=== PATIENT | female | born 1970 | race African-American/Black ===

== ENCOUNTER 2018-06-10 20:27 | Inpatient (IN) ==
--- NOTE | 2018-06-10 21:47 | ED ---
HPI General Chief Complaint: Neuro Symptoms/Deficit Stated Complaint: Skin problem on lips Source: patient and family Mode of arrival: ambulatory Limitations: no limitations History of Present Illness HPI narrative: 47 years old female complaint generalized malaise and weakness, lethargy, twitching of the hands extremity, dropping things out of hands, unsteady gait. Patient states that symptoms started after she was seen in emergency room for scabies on May 30, 2018. Patient was given prescription for prednisone 20 mg twice a day for 5 days, permethrin topical to be used once and repeated in 1 week. Patient also was given prescription for Vistaril for itching and triamcinolone cream. Patient normally taking gabapentin 600 mg 3 times a day, clonidine 0.2 mg 3 times a day, lisinopril HCTZ 10/12.5 daily, methadone 5 mg every other day. Last methadone dose was yesterday. Patient denies any alcohol or other illicit drug abuse. Patient denies any headache. Patient complains of blistering on the lips for the past 10 days. Patient complains of itching rash with swelling of the labia the past 10 days also. Patient is on her menstruation. Now. Patient denies any headache. Patient denies any visual change. Patient denies any neck pain. Patient denies any chest pain or shortness of breath. Patient denies abdominal pain. Patient denies any dysuria frequency. Patient denies any fever chills. Patient denies any back pain. Patient has history of diabetes in the past. Patient was on metformin. Patient lost weight and get off Metformin herself. Patient has not had her blood sugar checked recently. MD complaint: altered mental status and weakness Onset (ago): day(s) Timing confirmed by: family member Severity: moderate Consistency of symptoms: getting worse Context: change in medication Associated symptoms: weakness and difficulty walking Related Data Home Medications Medication Instructions Recorded Confirmed clonidine HCl 0.2 mg PO TID 05/30/18 05/30/18 gabapentin 600 mg PO TID 05/30/18 05/30/18 lisinopril-hydrochlorothiazide 1 tab PO DAILY 05/30/18 05/30/18 methadone 5 mg PO EVERY OTHER DAY 05/30/18 05/30/18 Previous Rx's Medication Instructions Recorded hydroxyzine pamoate [Vistaril] 25 mg PO Q8H PRN #20 cap 05/30/18 permethrin 60 ml TOPICAL Q7D #59 ml NS 05/30/18 triamcinolone acetonide 1 applic TOPICAL BID PRN #15 g 05/30/18 Allergies Allergy/AdvReac Type Severity Reaction Status Date / Time vancomycin Allergy Severe Anaphylaxis Verified 06/10/18 20:34 *MDRO Multi-Drug Resistant AdvReac Unknown Rash Uncoded 05/30/18 20:09 Organism Review of Systems ROS: all other systems reviewed are negative PMFSH History History Provided By: Patient Medical History Medical History Anxiety (Acute) Heart valve problem (Acute) Hypertension (Acute) Surgical History Surgical History Hx of knee surgery (Acute) Social History Social History Substance History: Active Abuse and Past History Second Hand Smoke Exposure: Yes Smoking Status: Current every day smoker Tobacco Type: Cigarettes How Often Do You Have a Drink Containing Alcohol: Monthly or less Recent Travel in [facility] within the Last 8 Weeks: No Recent Out of Country Travel within the Last 8 Weeks: No Exam Narrative Exam Narrative: GENERAL: Well-nourished, well-developed patient. SKIN: Focused skin assessment warm/dry. HEAD: Normocephalic. EYES: No scleral icterus. No injection or drainage. Patient has mild erythematous on the tongue area and the lips. NECK: Supple, trachea midline. No JVD or lymphadenopathy. CARDIOVASCULAR: Regular rate and rhythm without murmurs, gallops, or rubs. RESPIRATORY: Breath sounds equal bilaterally. No accessory muscle use. GASTROINTESTINAL: Abdomen soft, non-tender, nondistended. MUSCULOSKELETAL: No cyanosis, or edema. BACK: Nontender without obvious deformity. No CVA tenderness. [employer]ATOR exam: Patient has a whitish rash in the labia area. Patient has fresh blood in the vaginal vault. Patient on her menstruation. Course Initial Documented Vital Signs Temperature 97.7 F 06/10/18 20:40 Pulse Rate 95 H 06/10/18 20:40 Respiratory Rate 18 06/10/18 20:40 Blood Pressure 78/50 L 06/10/18 20:40 Pulse Oximetry 96 06/10/18 20:40 Last Documented Vital Signs Temperature 97.7 F 06/10/18 20:40 Pulse Rate 80 06/10/18 22:58 Respiratory Rate 20 06/10/18 22:58 Blood Pressure 86/59 L 06/10/18 22:58 Pulse Oximetry 96 06/10/18 22:58 Medical Decision Making MDM Narrative Medical decision making narrative: 47 years old female with generalized malaise and weakness, lethargy, complains of rash on the mouth and also labia area. Patient was seen 11 days ago and treated for scabies with prednisone Vistaril and permethrin. Patient also on methadone and blood pressure medications. Patient is hypotensive. Normal saline solution 2 L IV bolus. Insulin drip started. Potassium 20 mEq p.o. given. Medical Screen Exam Complete: Yes Emergency Medical Condition: Yes Lab Data Result diagrams: 06/10/18 22:00 06/10/18 22:00 Lab Results 06/10/18 06/10/18 06/10/18 Range/Units 22:00 22:00 22:00 CBC w Diff Auto diff final WBC 15.3 H (4.0-11.0) th/mm3 RBC 5.76 H (4.00-5.30) mil/mm3 Hgb 15.3 (11.6-15.3) gm/dL Hct 48.2 H (35.0-46.0) % MCV 83.7 (80.0-100.0) fL MCH 26.6 L (27.0-34.0) pg MCHC 31.8 L (32.0-36.0) % RDW 11.9 (11.6-17.2) % Plt Count 188 (150-450) th/mm3 MPV 13.5 H (7.0-11.0) fL Neut % (Auto) 84.2 H (16.0-70.0) % Lymph % (Auto) 8.9 L (9.0-44.0) % [place] % (Auto) 4.7 (0.0-8.0) % Eos % (Auto) 0.2 (0.0-4.0) % Baso % (Auto) 2.0 (0.0-2.0) % Neut # (Auto) 12.9 H (1.8-7.7) th/mm3 Lymph # (Auto) 1.4 (1.0-4.8) th/mm3 [place] # (Auto) 0.7 (0.0-0.9) th/mm3 Eos # (Auto) 0.0 (0.0-0.4) th/mm3 Baso # (Auto) 0.3 H (0.0-0.2) th/mm3 WBC Differential . Differential Comment . PT 11.1 (9.8-11.6) sec INR 1.1 Ratio Sodium 115 L* (136-145) meq/L Potassium 4.1 (3.5-5.1) meq/L Chloride 73 L (98-107) meq/L Carbon Dioxide 26.7 (21.0-32.0) meq/L Anion Gap 15 (5-15) meq/L BUN 48 H (7-18) mg/dL Creatinine 3.00 H (0.50-1.00) mg/dL Estimated GFR 20 L (>89) mL/min Random Glucose 1052 H* (74-106) mg/dL Calcium 8.3 L (8.5-10.1) mg/dL Total Bilirubin 0.8 (0.2-1.0) mg/dL AST 26 (15-37) U/L ALT 29 (10-53) U/L Alkaline Phosphatase 112 (45-117) U/L Total Creatine Kinase 327 H (26-192) U/L CK-MB (CK-2) 8.9 H (0.5-3.6) ng/mL CK-MB (CK-2) % 2.7 (0.0-4.0) % Troponin I Less than 0.02 L (0.02-0.05) ng/mL Total Protein 7.9 (6.4-8.2) g/dL Albumin 3.5 (3.4-5.0) g/dL TSH 2.090 (0.358-3.740) uIU/mL Urine Color (Yellw/Straw) Urine Clarity (Clear) Urine pH (5.0-8.5) Ur Specific [place] (1.002-1.035) Urine Protein (Neg-Trace) mg/dL Urine Glucose (UA) (Negative) mg/dL Urine Ketones (Negative) mg/dL Urine Occult Blood (Negative) Urine Nitrate (Negative) Urine Bilirubin (Negative) Urine Urobilinogen (Less than 2) mg/dL Ur Leukocyte Esterase (Negative) Urine RBC (0-3) /hpf Urine WBC (0-5) /hpf Ur Squamous Epith Cells (0-5) /hpf Micro UA Comment Ur Microscopic Review Urine Culture Comments Urine Opiates Screen (Neg) Ur Barbiturates Screen (Neg) Ur Amphetamines Screen (Neg) U Benzodiazepines Scrn (Neg) Urine Cocaine Screen (Neg) U Cannabinoids Screen (Neg) 06/10/18 06/10/18 Range/Units 22:15 22:15 CBC w Diff WBC (4.0-11.0) th/mm3 RBC (4.00-5.30) mil/mm3 Hgb (11.6-15.3) gm/dL Hct (35.0-46.0) % MCV (80.0-100.0) fL MCH (27.0-34.0) pg MCHC (32.0-36.0) % RDW (11.6-17.2) % Plt Count (150-450) th/mm3 MPV (7.0-11.0) fL Neut % (Auto) (16.0-70.0) % Lymph % (Auto) (9.0-44.0) % [place] % (Auto) (0.0-8.0) % Eos % (Auto) (0.0-4.0) % Baso % (Auto) (0.0-2.0) % Neut # (Auto) (1.8-7.7) th/mm3 Lymph # (Auto) (1.0-4.8) th/mm3 [place] # (Auto) (0.0-0.9) th/mm3 Eos # (Auto) (0.0-0.4) th/mm3 Baso # (Auto) (0.0-0.2) th/mm3 WBC Differential Differential Comment PT (9.8-11.6) sec INR Ratio Sodium (136-145) meq/L Potassium (3.5-5.1) meq/L Chloride (98-107) meq/L Carbon Dioxide (21.0-32.0) meq/L Anion Gap (5-15) meq/L BUN (7-18) mg/dL Creatinine (0.50-1.00) mg/dL Estimated GFR (>89) mL/min Random Glucose (74-106) mg/dL Calcium (8.5-10.1) mg/dL Total Bilirubin (0.2-1.0) mg/dL AST (15-37) U/L ALT (10-53) U/L Alkaline Phosphatase (45-117) U/L Total Creatine Kinase (26-192) U/L CK-MB (CK-2) (0.5-3.6) ng/mL CK-MB (CK-2) % (0.0-4.0) % Troponin I (0.02-0.05) ng/mL Total Protein (6.4-8.2) g/dL Albumin (3.4-5.0) g/dL TSH (0.358-3.740) uIU/mL Urine Color Yellow (Yellw/Straw) Urine Clarity Slightly cloudy (Clear) Urine pH 6.0 (5.0-8.5) Ur Specific [place] Less/equal 1.005 (1.002-1.035) Urine Protein Negative (Neg-Trace) mg/dL Urine Glucose (UA) 1000 or greater H (Negative) mg/dL Urine Ketones Negative (Negative) mg/dL Urine Occult Blood Large H (Negative) Urine Nitrate Negative (Negative) Urine Bilirubin Negative (Negative) Urine Urobilinogen 0.2 (Less than 2) mg/dL Ur Leukocyte Esterase Negative (Negative) Urine RBC 51-189 H (0-3) /hpf Urine WBC 0-5 (0-5) /hpf Ur Squamous Epith Cells 6-10 H (0-5) /hpf Micro UA Comment Culture not ind Ur Microscopic Review Microscopic reviewed Urine Culture Comments Culture not ind Urine Opiates Screen Neg (Neg) Ur Barbiturates Screen Neg (Neg) Ur Amphetamines Screen Neg (Neg) U Benzodiazepines Scrn Neg (Neg) Urine Cocaine Screen Pos H (Neg) U Cannabinoids Screen Neg (Neg) Imaging Data Radiologist's impression: Chest X-Ray 06/10/18 21:20 CONCLUSION: No acute cardiopulmonary disease. Head CT 06/10/18 21:20 CONCLUSION: Negative noncontrast head CT. No acute intracranial abnormality is identified. . Discharge Plan Discharge Disposition Patient Disposition: 30 Still Patient Discharge Details Diagnosis: Acute hyperglycemia, Acute hyponatremia, Renal insufficiency, Twila vaginitis , Substance abuse Physicians Team ED Provider: Raleigh Mullen Primary Care Provider: Karlo Medrano Attending Provider: Panfilo Real Rxs /Orders / Referrals /Forms Prescriptions: No Action gabapentin 600 mg Tablet 600 mg PO TID RF: 0 clonidine HCl 0.2 mg Tablet 0.2 mg PO TID RF: 0 lisinopril-hydrochlorothiazide 10-12.5 mg Tablet 1 tab PO DAILY RF: 0 methadone 5 mg Tablet 5 mg PO EVERY OTHER DAY RF: 0 permethrin 1 % liquid 60 ml TOPICAL Q7D Qty: 59 RF: 1 hydroxyzine pamoate [Vistaril] 25 mg capsule 25 mg PO Q8H PRN (Reason: itching) Qty: 20 RF: 0 triamcinolone acetonide 0.1 % cream 1 applic TOPICAL BID PRN (Reason: itching) Qty: 15 RF: 2 Discharge Interventions Interventions: Vital Signs Last Done: 06/10/18 22:58 Status ED Status: Admitted Patient
--- NOTE | 2018-06-10 21:55 | XR ---
EXAM DATE: 06/10/2018 9:53 PM EDT AGE/SEX: 47 years / Female INDICATIONS: Shortness of breath. CLINICAL DATA: This is the patient's initial encounter. Patient reports that signs and symptoms have been present for 1 day and indicates a pain score of 0/10. MEDICAL/SURGICAL HISTORY: . Hypertension. Hypercholesterolemia. Methicillin-resistant Staphyloc occus aureus. Coronary artery disease. Tubal blockage. Diabetes. Hepatitis C. IV drug use. . Cardia c catheterization. Knee surgery. COMPARISON: [facility] [place] [facility] [place], 02/23/2016. . FINDINGS: The lungs are clear without infiltrate, nodule, or mass. There is no appreciable pleural effusion for technique. Heart and mediastinum are unremarkable. CONCLUSION: No acute cardiopulmonary disease. Electronically signed by: Inderjit Mondragon MD 06/10/2018 9:54 PM EDT
[2018-06-10] MEDS: Sod Chloride 0.9% Inj 1,000 ML IV.SIG SCH ×2 (22:05→23:10)
[2018-06-10 22:10] LABS: Baso # (Auto) 0.3 th/mm3 (0.0-0.2); Eos % (Auto) 0.2 % (0.0-4.0); Hematocrit 48.2 % (35.0-46.0); Hemoglobin 15.3 gm/dL (11.6-15.3); Lymph # (Auto) 1.4 th/mm3 (1.0-4.8); Lymph % (Auto) 8.9 % (9.0-44.0); Mean Corpuscular HGB Conc 31.8 % (32.0-36.0); Mean Corpuscular Hemoglobin 26.6 pg (27.0-34.0); Mean Corpuscular Volume 83.7 fL (80.0-100.0); Mean Platelet Volume 13.5 fL (7.0-11.0); Mono # (Auto) 0.7 th/mm3 (0.0-0.9); Mono % (Auto) 4.7 % (0.0-8.0); Neut # (Auto) 12.9 th/mm3 (1.8-7.7); Neut % (Auto) 84.2 % (16.0-70.0); Platelet Count 188 th/mm3 (150-450); Red Blood Count 5.76 mil/mm3 (4.00-5.30); Red Cell Distribution Width 11.9 % (11.6-17.2); White Blood Count 15.3 th/mm3 (4.0-11.0)
[2018-06-10 22:22] LABS: Bilirubin,Urine Negative (Negative); Clarity,Urine Slightly Cloudy (Clear); Color,Urine Yellow (Yellw/Straw); Leukocyte Esterase,Urine Negative (Negative); Nitrite,Urine Negative (Negative); Specific Gravity,Urine Less/Equal 1.005 (1.002-1.035); Urobilinogen,Urine 0.2 mg/dL (Less than 2)
[2018-06-10 22:23] LABS: INR 1.1 Ratio; Prothrombin Time 11.1 sec (9.8-11.6)
[2018-06-10 22:29] LABS: RBC,Urine 51-189 /hpf (0-3); WBC,Urine 0-5 /hpf (0-5)
[2018-06-10 22:30] LABS: Amphetamine Screen,Urine Neg (Neg); Barbiturate Screen,Urine Neg (Neg); Cannabinoid Screen,Urine Neg (Neg)
[2018-06-10 22:31] LABS: Cocaine Screen,Urine Pos (Neg)
[2018-06-10 22:32] LABS: Opiate Screen,Urine Neg (Neg)
[2018-06-10 22:33] LABS: Alanine Aminotransferase 29 U/L (10-53); Albumin 3.5 g/dL (3.4-5.0); Alkaline Phosphatase 112 U/L (45-117); Anion Gap 15 meq/L (5-15); Aspartate Aminotransferase 26 U/L (15-37); Blood Urea Nitrogen 48 mg/dL (7-18); Calcium 8.3 mg/dL (8.5-10.1); Carbon Dioxide 26.7 meq/L (21.0-32.0); Chloride 73 meq/L (98-107); Creatine Kinase 327 U/L (26-192); Glomerular Filtration Rate 20 mL/min (>89); Potassium 4.1 meq/L (3.5-5.1); Total Protein 7.9 g/dL (6.4-8.2)
[2018-06-10 22:35] LABS: Glucose,Random 1052 mg/dL (74-106); Sodium 115 meq/L (136-145)
[2018-06-10] MEDS ORDERED: Dextrose 50% in Water 50 ML Vial IV.PUSH PRN (22:43)
[2018-06-10] MEDS ORDERED: Insulin Regular (For Infusion) 100 UNIT in Sodium Chlor 0.9% Inj 99 ML IV.CONT PRN ×2 (22:43→23:55)
--- NOTE | 2018-06-10 23:05 | CT ---
EXAM DATE: 06/10/2018 10:57 PM EDT AGE/SEX: 47 years / Female INDICATIONS: Altered mental status. CLINICAL DATA: This is the patient's initial encounter. Patient reports that signs and symptoms have been present for 1 day and indicates a pain score of 0/10. MEDICAL/SURGICAL HISTORY: . Anxiety. Drug abuse. Hypertension. Scabies. . Unspecified knee surgery . RADIATION DOSE: 51.81 CTDI (mGy) COMPARISON: No prior exams available for comparison. TECHNIQUE: CT of the head without contrast. Using automated exposure control and adjustment of the mA and/or kV according to patient size, radiation dose was kept as low as reasonably achievable to ob tain optimal diagnostic quality images. DICOM format image data is available electronically for revi ew and comparison. FINDINGS: Cerebrum: The ventricles are normal. No midline shift, mass lesion, hemorrhage or acute infarction. No extraaxial fluid collections are seen. Posterior Fossa: The cerebellum and brainstem demonstrate no acute abnormality. The 4th ventricle is midline. The cerebellopontine angle is within normal limits. Extracranial: The visualized sinuses are clear. Skull: The calvaria is intact. No skull fracture. CONCLUSION: Negative noncontrast head CT. No acute intracranial abnormality is identified. . Electronically signed by: Speedy Hammonds MD 06/10/2018 11:03 PM EDT
[2018-06-10 23:07] LABS: CKMB Percent 2.7 % (0.0-4.0); Creatine Kinase MB 8.9 ng/mL (0.5-3.6)
[2018-06-10] MEDS ORDERED: Fluconazole 100 MG Tablet PO ONE (23:10)
--- NOTE | 2018-06-10 23:45 | P.HPCC ---
History of Present Illness Primary Care Physician: Karlo Medrano MD History of Present Illness: 47 years old female presents to emergency department at [facility] with complaint of generalized malaise and weakness, lethargy, twitching of the hands extremity, dropping things out of hands, and unsteady gait. Per patient her symptoms started after she was seen in emergency room for scabies on May 30, 2018. Patient was given prescription for prednisone 20 mg twice a day for 5 days, permethrin topical to be used once and repeated in 1 week. Patient also was given prescription for Vistaril for itching and triamcinolone cream. Patient normally taking gabapentin 600 mg 3 times a day, clonidine 0.2 mg 3 times a day, lisinopril HCTZ 10/12.5 daily, methadone 5 mg every other day. Last methadone dose was yesterday. Patient denies any alcohol or other illicit drug abuse. Patient denies any headache. Patient complains of blistering on the lips for the past 10 days. Patient complains of itching rash with swelling of the labia the past 10 days also. Patient is on her menstruation. The patient denies any headache. Patient denies any visual change or neck pain. Patient denies any chest pain or shortness of breath. Patient denies abdominal pain. Patient denies any dysuria frequency. Patient denies any fever chills. Patient denies any back pain. Patient has history of diabetes in the past. Patient was on metformin. Patient lost weight and get off Metformin herself. She has not had her blood sugar checked recently. Her sugar in the emergency department was greater than 600 with the significant glucosuria. Patient has been admitted to ICU for DKA protocol. Inpatient Certification: I certify that the inpatient services were ordered in accordance with Medicare regulations governing the order. This includes certification that hospital inpatient services are reasonable and necessary and in the case of services not specified as inpatient-only under 42 CFR 419.22(n), that they are appropriately provided as inpatient services in accordance to with the 2-midnight benchmark under 43 CFR 412.3(e) Review of Systems All other systems reviewed negative except as stated in HPI PMFSH - History History Provided By: Patient - Medical History Medical History: Medical History (Last Reviewed 06/10/18 @ 22:18 by Stephanie Meraz RN) Drug abuse, IV Scabies Anxiety Heart valve problem Hypertension - Surgical History Surgical History: Surgical History (Last Reviewed 06/10/18 @ 22:18 by Stephanie Meraz RN) Hx of knee surgery - Tobacco History Second Hand Smoke Exposure: Yes Tobacco Use In Past 30 Days: Yes Smoking Status: Current every day smoker Tobacco Type: Cigarettes - Alcohol History How Often Do You Have a Drink Containing Alcohol: Monthly or less - Substance Use History Substance History: Active Abuse, Past History - Substance Use Type Marijuana Status: Active Route Used: Inhalation Frequency: daily - Travel History Recent Travel in the [place] Within the Last 8 Weeks: No Recent Travel Out of the Country Within the Last 8 Weeks: No - Immunization History Tetanus Immunization: <5 Years Hx Influenza Vaccine This Season: No Medications and Allergies Active Medications: Active Medications Dextrose (D50w Vial) 50 ml IV.PUSH UNSCH PRN PRN Reason: PER HYPOGLYCEMIA PROTOCOL Sodium Chloride (Ns Inj) 1,000 mls @ 0 mls/hr IV.SIG BOLUS KARLA Stop: 06/11/18 21:31 Last Admin: 06/10/18 22:05 Dose: 999 mls/hr Insulin Human Regular 100 unit (/ Sodium Chloride) 100 mls @ 0 mls/hr IV.CONT TITRATE PRN; Protocol PRN Reason: See protocol Current Medications Acetaminophen (Tylenol) 650 mg PO Q6H PRN PRN Reason: PAIN 1-10 AND/OR FEVER >101F Al Hydroxide/Mg Hydroxide (Milk Of Magnesia Liq) 30 ml PO Q12H PRN PRN Reason: Mild Constipation Albuterol (Duoneb Neb (Prn)) 1 ampul NEB Q2HR NEB PRN PRN Reason: WHEEZING Bisacodyl (Dulcolax Supp) 10 mg RECTAL DAILY PRN PRN Reason: SEVERE CONSITIPATION Chlorhexidine Gluconate (Chlorhexidine 2% Cloth) 3 pack TOPICAL DAILY@0400 KRALA Stop: 06/16/18 03:59 Chlorhexidine Gluconate (Chlorhexidine 2% Cloth) 3 pack TOPICAL DAILY@0400 PRN PRN Reason: Extra cloth needed Stop: 06/16/18 03:59 Dextrose (D50w Vial) 50 ml IV.PUSH UNSCH PRN PRN Reason: PER HYPOGLYCEMIA PROTOCOL Enoxaparin Sodium (Lovenox Inj) 30 mg SQ Q24H KARLA Hydromorphone HCl (Dilaudid Pf Inj) 1 mg IV.PUSH Q4H PRN PRN Reason: PAIN SCALE 6 TO 10 Last Admin: 06/11/18 00:40 Dose: 1 mg Hydroxyzine Pamoate (Vistaril) 25 mg PO Q8H PRN PRN Reason: itching Sodium Chloride (Ns Inj) 1,000 mls @ 0 mls/hr IV.SIG BOLUS KARLA Stop: 06/11/18 21:31 Last Admin: 06/10/18 23:10 Dose: 999 mls/hr Dextrose/Sodium Chloride (D5w/Normal Saline Inj) 1,000 mls @ 200 mls/hr IV.CONT .Q5H KARLA Insulin Human Regular 100 unit (/ Sodium Chloride) 100 mls @ 0 mls/hr IV.CONT TITRATE PRN; Protocol PRN Reason: See protocol Last Titration: 06/11/18 03:37 Dose: 0 units/hr, 0 mls/hr Sodium Chloride (Ns Inj) 1,000 mls @ 250 mls/hr IV.CONT .Q4H KARLA Potassium Chloride (Kcl 40 Meq Premix Inj) 40 meq in 100 mls @ 100 mls/hr IV.SIG Q1H PRN PRN Reason: for Initial K+ ONLY < 3.5 Potassium Chloride (Kcl 40 Meq Premix Inj) 40 meq in 100 mls @ 50 mls/hr IV.SIG Q2H PRN PRN Reason: for Subsequent K+ < 3.5 Potassium Chloride (Kcl 20 Meq Premix Inj) 20 meq in 100 mls @ 100 mls/hr IV.SIG Q1H PRN PRN Reason: for K+ 3.5 to 4.4 Last Admin: 06/11/18 03:53 Dose: 100 mls/hr Potassium Chloride (Kcl 20 Meq Premix Inj) 20 meq in 100 mls @ 100 mls/hr IV.SIG Q1H PRN PRN Reason: for K+ 4.5 to 5 Potassium Chloride (Kcl 20 Meq Premix Inj) 20 meq in 100 mls @ 50 mls/hr IV.SIG Q2H PRN PRN Reason: for Initial K+ ONLY < 3.5 Potassium Chloride (Kcl 20 Meq Premix Inj) 20 meq in 100 mls @ 50 mls/hr IV.SIG Q2H PRN PRN Reason: for Subsequent K+ < 3.5 Potassium Chloride (Kcl 20 Meq Premix Inj) 20 meq in 100 mls @ 50 mls/hr IV.SIG Q2H PRN PRN Reason: for K+ 3.5 to 4.4 Potassium Chloride (Kcl 20 Meq Premix Inj) 20 meq in 100 mls @ 50 mls/hr IV.SIG Q2H PRN PRN Reason: for K+ 4.5 to 5 Sodium Phosphate 15 mmol/ (Sodium Chloride) 105 mls @ 25 mls/hr IV.SIG UNSCH PRN PRN Reason: for Phosphate Level < 1.0 Dexmedetomidine HCl 200 mcg/ (Sodium Chloride) 50 mls @ 5.59 mls/hr IV.CONT TITRATE PRN; Protocol PRN Reason: Per Protocol Last Admin: 06/11/18 03:54 Dose: 0.6 mcg/kg/hr, 16.77 mls/hr Lactulose (Lactulose Liq) 30 ml PO DAILY PRN PRN Reason: SEVERE CONSITIPATION Lorazepam (Ativan Inj) 1 mg IV.PUSH Q4H PRN PRN Reason: AGITATION Metoclopramide HCl (Reglan Inj) 5 mg IV.PUSH Q6HR KARLA; Protocol Non-Formulary Medication (Gabapentin [Gabapentin]) 600 mg PO TID KARLA Ondansetron HCl (Zofran Inj) 4 mg IV.PUSH Q6H PRN PRN Reason: NAUSEA OR VOMITING Senna/Docusate Sodium (Eri-Colace) 1 tab PO BID KARLA Sennosides (Senokot) 17.2 mg PO Q12H PRN PRN Reason: Moderate Constipation Sodium Bicarbonate (Sodium Bicarbonate 8.4% Inj) 50 meq IV.PUSH UNSCH PRN PRN Reason: for pH 6.9 to 7.0 Sodium Bicarbonate (Sodium Bicarbonate 8.4% Inj) 100 meq IV.PUSH UNSCH PRN PRN Reason: for pH less than 6.9 Sodium Chloride (Ns Flush) 2 ml IV.FLUSH BID KARLA Sodium Chloride (Ns Flush) 2 ml IV.FLUSH PRN PRN PRN Reason: FLUSH AFTER USING IV ACCESS Temazepam (Restoril) 15 mg PO HS PRN PRN Reason: INSOMNIA Allergies Allergy/AdvReac Type Severity Reaction Status Date / Time vancomycin Allergy Severe Anaphylaxis Verified 06/10/18 20:34 *MDRO Multi-Drug Resistant AdvReac Unknown Rash Uncoded 05/30/18 20:09 Organism Home Medications Medication Instructions Recorded Confirmed Type clonidine HCl 0.2 mg PO TID 05/30/18 05/30/18 History gabapentin 600 mg PO TID 05/30/18 05/30/18 History lisinopril-hydrochlorothiazide 1 tab PO DAILY 05/30/18 05/30/18 History methadone 5 mg PO EVERY OTHER DAY 05/30/18 05/30/18 History Results - Labs CBC & Chem 7: 06/10/18 22:00 06/10/18 22:00 Labs: Short CBC 06/10/18 Range/Units 22:00 WBC 15.3 H (4.0-11.0) th/mm3 Hgb 15.3 (11.6-15.3) gm/dL Hct 48.2 H (35.0-46.0) % Plt Count 188 (150-450) th/mm3 BMP 06/10/18 22:00 Sodium 115 L* Potassium 4.1 Chloride 73 L Carbon Dioxide 26.7 BUN 48 H Creatinine 3.00 H Calcium 8.3 L Cardiac Enzymes 06/10/18 Range/Units 22:00 Total Creatine Kinase 327 H (26-192) U/L CK-MB (CK-2) 8.9 H (0.5-3.6) ng/mL Troponin I Less than 0.02 L (0.02-0.05) ng/mL Liver Function 06/10/18 Range/Units 22:00 Total Bilirubin 0.8 (0.2-1.0) mg/dL AST 26 (15-37) U/L ALT 29 (10-53) U/L Alkaline Phosphatase 112 (45-117) U/L Albumin 3.5 (3.4-5.0) g/dL Urine 06/10/18 Range/Units 22:15 Urine Color Yellow (Yellw/Straw) Urine Clarity Slightly cloudy (Clear) Urine pH 6.0 (5.0-8.5) Ur Specific [place] Less/equal 1.005 (1.002-1.035) Urine Protein Negative (Neg-Trace) mg/dL Urine Glucose (UA) 1000 or greater H (Negative) mg/dL - Imaging Impressions Chest X-Ray 06/10/18 21:20 CONCLUSION: No acute cardiopulmonary disease. Head CT 06/10/18 21:20 CONCLUSION: Negative noncontrast head CT. No acute intracranial abnormality is identified. . Exam Vital signs: Vital Signs 06/10/18 20:40 06/10/18 21:20 06/10/18 22:58 Temperature 97.7 F Pulse Rate 95 H 89 80 Respiratory Rate 18 20 Blood Pressure 78/50 L 86/59 L Pulse Oximetry 96 96 96 Intake & Output 06/10/18 06/10/18 06/11/18 06:59 18:59 06:59 Weight 111.8 kg - Constitutional moderate distress - Routine HEENT Exam Head: Present: normocephalic, atraumatic Eye: Present: PERRL, normal accommodation ENT: Present: mucous membranes moist - Routine Neck Exam Present: supple, full ROM. Absent: JVD, carotid bruit - Routine Chest/Breast/Axilla Exam Chest wall: Absent: tenderness, mass, pacemaker - Routine Respiratory Exam Absent: accessory muscle use, rhonchi, stridor, wheezes, crackles - Routine Cardiovascular Exam Present: RRR, S1, S2 - Routine Abdominal Exam Present: soft, normoactive bowel sounds, tenderness - Routine Extremities Exam Absent: cyanosis, clubbing, edema - Routine Skin Exam Absent: cyanosis, erythema - Routine Neurological Exam Present: alert, altered mental status, moving all extremities, normal tone. Absent: hemineglect Septic Shock Reassessment Septic shock perfusion: reassessment completed Caprini VTE Risk Assessment Caprini VTE Risk Assessment: Moderate/High Risk (score >= 2) Caprini Risk Assessment Model: Point Value = 1 Point Value = 2 Point Value = 3 Point Value = 5 Age 41-60 Minor surgery BMI > 25 kg/m2 Swollen legs Varicose veins or History of unexplained or recurrent spontaneous Oral contraceptives or hormone replacement Sepsis (< 1 month) Serious lung disease, including pneumonia (< 1 month) Abnormal pulmonary function Acute myocardial infarction Congestive heart failure (< 1 month) History of inflammatory bowel disease Medical patient at bed rest Age 61-74 Arthroscopic surgery Major open surgery (> 45 min) Laparoscopic surgery (> 45 min) Malignancy Confined to bed (> 72 hours) Immobilizing plaster cast Central venous access Age >= 75 History of VTE Family history of VTE Factor V Leiden Prothrombin [id number] Lupus anticoagulant Anticardiolipin antibodies Elevated serum homocysteine Heparin-induced thrombocytopenia Other congenital or acquired thrombophilia Stroke (< 1 month) Elective arthroplasty Hip, pelvis, or leg fracture Acute spinal cord injury (< 1 month) Prophylaxis Regimen: Total Risk Factor Score Risk Level Prophylaxis Regimen 0-1 Low Early ambulation 2 Moderate Order ONE of the following: *Sequential Compression Device (SCD) *Heparin 5000 units SQ BID 3-4 Higher Order ONE of the following medications: *Heparin 5000 units SQ TID *Enoxaparin/Lovenox 40 mg SQ daily (WT < 150 kg, CrCl > 30 mL/min) *Enoxaparin/Lovenox 30 mg SQ daily (WT < 150 kg, CrCl > 10-29 mL/min) *Enoxaparin/Lovenox 30 mg SQ BID (WT < 150 kg, CrCl > 30 mL/min) AND/OR *Sequential Compression Device (SCD) 5 or more Highest Order ONE of the following medications: *Heparin 5000 units SQ TID (Preferred with Epidurals) *Enoxaparin/Lovenox 40 mg SQ daily (WT < 150 kg, CrCl > 30 mL/min) *Enoxaparin/Lovenox 30 mg SQ daily (WT < 150 kg, CrCl > 10-29 mL/min) *Enoxaparin/Lovenox 30 mg SQ BID (WT < 150 kg, CrCl > 30 mL/min) AND *Sequential Compression Device (SCD) Assessment and Plan - Assessment and Plan Plan: DKA -Insulin drip per protocol -Aggressive IV fluid hydration -Frequent labs -Potassium replacement as needed -N.p.o. -CXR, series of troponins and cultures to rule out underlying decompensation Cocaine intoxication -Precedex -Ativan as needed -IV fluid hydration -Telemetry Altered mental status -Due to above -CT head negative -Tox screen positive for cocaine -Neuro checks per unit protocol -Supportive care DVT GI prophylaxis -Teds SCDs -Lovenox -GI prophylaxis not indicated 35 minutes of critical care Patient has been medically optimized, improving on insulin drip, agitation controlled with Ativan as needed. Critical care medicine will sign off. Hospitalist service to resume care.
[2018-06-10] MEDS ORDERED: Potassium Chlor 20 mEq Premix 20 MEQ/100 ML PIGGYBACK IV.SIG PRN ×4 (23:55)
[2018-06-10] MEDS ORDERED: Potassium Chlor 40 mEq Premix 40 MEQ/100 ML PIGGYBACK IV.SIG PRN ×2 (23:55)
[2018-06-10] MEDS ORDERED: Acetaminophen 325 MG Tablet PO PRN (23:55)
[2018-06-10] MEDS ORDERED: Bisacodyl 10 MG Supp RECTAL PRN (23:55)
[2018-06-10] MEDS ORDERED: Sodium Phosphate Inj 15 MMOL in Sodium Chlor 0.9% Inj 100 ML IV.SIG PRN (23:55)
[2018-06-10] MEDS ORDERED: HYDROmorphone PF Inj 1 MG/ML Ampul IV.PUSH PRN (23:55)
[2018-06-10] MEDS ORDERED: Temazepam 15 MG Capsule PO PRN (23:55)
[2018-06-11] MEDS: Dexmedetomidine Inj 200 MCG in Sodium Chlor 0.9% Inj 48 ML IV.CONT PRN ×2 (01:54→03:54)
[2018-06-11] MEDS: Sod Chloride 0.9% Inj 1,000 ML IV.SIG SCH ×2 (02:00→03:00)
[2018-06-11 02:55] LABS: Lipase 134 U/L (73-393)
[2018-06-11 03:18] LABS: Beta Hydroxybutyric Acid 0.39 mmol/L (0.00-0.39)
[2018-06-11] MEDS: Potassium Chlor 20 mEq Premix 20 MEQ/100 ML PIGGYBACK IV.SIG PRN ×4 (03:53→11:02)
[2018-06-11] MEDS: Sod Chloride 0.9% Inj 1,000 ML IV.CONT SCH ×6 (04:00→21:36)
[2018-06-11] MEDS ORDERED: Chlorhexidine Gluconate 2% 1 Pack (2 Cloths) TOPICAL PRN (04:00)
[2018-06-11 06:51] LABS: Baso # (Auto) 0.7 th/mm3 (0.0-0.2); Baso % (Auto) 4.6 % (0.0-2.0); Eos % (Auto) 0.3 % (0.0-4.0); Hematocrit 41.9 % (35.0-46.0); Lymph % (Auto) 13.9 % (9.0-44.0); Mean Corpuscular HGB Conc 33.4 % (32.0-36.0); Mean Corpuscular Hemoglobin 26.7 pg (27.0-34.0); Mean Platelet Volume 11.3 fL (7.0-11.0); Mono # (Auto) 0.7 th/mm3 (0.0-0.9); Mono % (Auto) 4.5 % (0.0-8.0); Neut # (Auto) 11.1 th/mm3 (1.8-7.7); Neut % (Auto) 76.7 % (16.0-70.0); Platelet Count 139 th/mm3 (150-450); Red Blood Count 5.24 mil/mm3 (4.00-5.30); Red Cell Distribution Width 11.8 % (11.6-17.2); White Blood Count 14.6 th/mm3 (4.0-11.0)
--- NOTE | 2018-06-11 06:58 | XR ---
EXAM DATE: 06/11/2018 6:55 AM EDT AGE/SEX: 47 years / Female INDICATIONS: Fever. CLINICAL DATA: This is the patient's subsequent encounter. Patient reports that signs and symptoms h ave been present for 2 days and indicates a pain score of Nonresponsive. MEDICAL/SURGICAL HISTORY: . Hypertension. Hypercholesterolemia. Methicillin-resistant Staphyloc occus aureus. Coronary artery disease. Tubal blockage. Diabetes. Hepatitis C. IV drug use. . Cardiac catheterization. COMPARISON: [facility], CHEST 1V SINGLE AP, 06/10/2018. . FINDINGS: Underinflated and rotated AP view of the chest demonstrates a normal-sized cardiac silhouette. Mild b ibasilar airspace opacity is present. No pleural effusion or pneumothorax is seen. The bones and soft tissues demonstrate no acute abnormality. CONCLUSION: Underinflated with mild bibasilar airspace opacity most likely representing subsegmental atelectasis secondary to the under inflation or less likely airspace consolidation. Electronically signed by: Speedy Hammonds MD 06/11/2018 6:57 AM EDT
[2018-06-11 07:04] LABS: Activated Partial Thrombo Time 22.7 sec (24.3-30.1); INR 1.2 Ratio; Prothrombin Time 11.7 sec (9.8-11.6)
[2018-06-11 07:21] LABS: Albumin 2.7 g/dL (3.4-5.0); Calcium 7.3 mg/dL (8.5-10.1); Carbon Dioxide 22.5 meq/L (21.0-32.0); Magnesium 2.6 mg/dL (1.5-2.5); Phosphorus 1.6 mg/dL (2.5-4.9); Potassium 3.1 meq/L (3.5-5.1); Total Protein 6.2 g/dL (6.4-8.2); Troponin I 0.04 ng/mL (0.02-0.05)
[2018-06-11] MEDS: Chlorhexidine Gluconate 2% 1 Pack (2 Cloths) TOPICAL SCH (07:39)
[2018-06-11] MEDS: Dextrose 5%/NaCl 0.9% Inj 1,000 ML IV.CONT SCH ×6 (07:40→21:36)
[2018-06-11] MEDS ORDERED: Gabapentin 300 MG Capsule PO SCH (09:00)
[2018-06-11] MEDS: Senna/Docusate Sodium 8.6/50 MG Tablet PO SCH ×2 (09:53→21:35)
[2018-06-11] MEDS: Gabapentin 300 MG Capsule PO SCH (09:53)
[2018-06-11] MEDS ORDERED: Dextrose 50% in Water 50 ML Vial IV.PUSH PRN (11:18)
[2018-06-11 11:24] LABS: Hemoglobin A1c 18.2 % (4.3-6.0)
--- NOTE | 2018-06-11 11:25 | P.PN ---
Subjective Interval history: 47-year-old female who was recently seen by critical care management for diabetic ketoacidosis. Patient originally presented the hospital because of general malaise, weakness, lethargy gait and weakness in upper extremities. Patient had workup done emergency department found to have diabetic ketoacidosis. Patient admitted to the hospital with diabetic ketoacidosis you on insulin. Upon review of medical records patient had non-anion gap acidosis. Patient's diabetes was controlled with insulin IV. Critical care team transferred to medical service. Apparently the patient had psychosis, increased agitation throughout the evening. Patient had to be put in restraints , started on Precedex drip. 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 Patient does have history of smoking crack cocaine and she openly admits it. Patient has significant medical issues in which she required 4 L of IV fluid boluses due to hypotension. Patient continued hypotension throughout the evening and morning. Patient has been taken off the Precedex drip at this time, still remains in restraints. Upon seeing the patient this morning the only complaint that she has is that she wants to leave the hospital. I discussed with the patient that she have life-threatening conditions such as severe hypotension that is not conducive with perfusing her organs. As uncontrolled diabetes, substance abuse psychosis. Patient does not care. Patient wants to be discharged from the hospital. She indicates that she wants to have her pain medication to include methadone, gabapentin. I discussed with her that we cannot prescribe this medication at this time due to her continued hypotension. Patient continued to argue and demanding to be discharged home despite the fact that she is critically ill. Patient states that "she much rather be " . Patient is not willing to undergo involuntary treatment. Patient at risk for worsening medical condition and even without treatment. This was discussed with the patient and she does not care. She still appears to be in substance abuse psychosis. Patient will be Josue acted for her own safety. Physical Exam Vital signs: Vital Signs 06/10/18 20:40 06/10/18 21:20 06/10/18 22:58 Temperature 97.7 F Pulse Rate 95 H 89 80 Respiratory Rate 18 20 Blood Pressure 78/50 L 86/59 L Pulse Oximetry 96 96 96 06/10/18 23:46 06/11/18 01:00 06/11/18 02:00 Temperature 98.9 F Pulse Rate 79 98 H 108 H Respiratory Rate 18 26 H 26 H Blood Pressure 107/68 158/95 H 166/88 H Pulse Oximetry 96 97 98 06/11/18 03:00 06/11/18 03:02 06/11/18 03:07 Temperature Pulse Rate 102 H 102 H Respiratory Rate 28 H Blood Pressure 95/64 L Pulse Oximetry 98 98 06/11/18 04:00 06/11/18 05:00 06/11/18 06:00 Temperature Pulse Rate 74 66 Respiratory Rate 16 14 20 Blood Pressure 86/56 L 84/60 L 91/47 L Pulse Oximetry 100 98 06/11/18 07:00 06/11/18 07:06 06/11/18 07:10 Temperature 97.6 F Pulse Rate 62 62 70 Respiratory Rate 9 L 9 L 43 H Blood Pressure 80/50 L 78/50 L 72/43 L Pulse Oximetry 89 L 89 L 92 L 06/11/18 07:42 06/11/18 08:00 06/11/18 08:15 Temperature Pulse Rate 62 62 64 Respiratory Rate 10 L 10 L 8 L Blood Pressure 91/47 L 89/52 L 86/54 L Pulse Oximetry 94 L 91 L 91 L Intake & Output 06/10/18 06/11/18 06/11/18 18:59 06:59 18:59 Intake Total 4150 / 4150 280 / 280 Output Total 0 / 0 Balance 4150 / 4150 280 / 280 Weight 112.9 kg Intake: IV 4150 / 4150 280 / 280 Precedex Inj 200 MCG In NS Inj 50 / 50 48 ML @ 0.2 MCG/KG/HR 5.59 mls/ hr IV.CONT TITRATE PRN Rx#: [id number] NovoLIN R (IV Infusion) 100 180 / 180 UNIT In NS Inj 99 ML @ Per Protocol IV.CONT TITRATE PRN Rx #:[id number] KCl 20 mEq Premix Inj 20 meq In 100 / 100 100 / 100 100 ml @ 100 mls/hr IV.SIG Q1H PRN Rx#:[id number] NS Inj 1,000 ML @ 1000 mls/hr 4000 / 4000 IV.SIG .Q1H KARLA Rx#:[id number] Output: Urine 0 / 0 Narrative: GENERAL: Well-developed, well-nourished, in no acute distress. Patient is awake , she is orientated to person. HEENT: Head is normocephalic without any lesions or masses noted. Facial features are symmetric. Eyes: Pupils equal round reactive to light. Extraocular muscles are intact. Conjunctivae were clear. Oropharyngeal: Pharynx without any erythema edema. Tongue is midline without deviation. Buccal mucosa is dry with dried phlegm in the corners of her mouth NECK: Supple without any masses. Trachea midline no deviation. No JVD, no bruits are appreciated CARDIAC: Regular rhythm, regular rate. S1/S2 are heard. No murmurs gallops or rubs. LUNGS: Clear to auscultation bilaterally. No wheeze, rhonchi or rales. No use of accessory muscles on inspiration or expiration. ABDOMEN: Soft, nontender. Nondistended. Bowel sounds heard in all 4 quadrants. No organomegaly or masses. Negative rebound, negative guarding EXTREMITIES: No edema, pulses are equal bilaterally. No cyanosis or clubbing NEUROLOGY: Patient appears to be very agitated, heightened mood. Patient indicates that she wants to go home if not she would rather be . Cranial nerves II through XII grossly intact. Muscle strength 5/5 in upper and lower extremities bilaterally. Deep tendon reflexes are 2+ in upper and lower extremities bilaterally. Results - Labs CBC & Chem 7: 06/11/18 06:42 06/11/18 06:42 Laboratory Results - last 24 hr 06/10/18 06/10/18 06/10/18 22:00 22:00 22:00 CBC w Diff Auto diff final WBC 15.3 H RBC 5.76 H Hgb 15.3 Hct 48.2 H MCV 83.7 MCH 26.6 L MCHC 31.8 L RDW 11.9 Plt Count 188 MPV 13.5 H Neut % (Auto) 84.2 H Lymph % (Auto) 8.9 L [place] % (Auto) 4.7 Eos % (Auto) 0.2 Baso % (Auto) 2.0 Neut # (Auto) 12.9 H Lymph # (Auto) 1.4 [place] # (Auto) 0.7 Eos # (Auto) 0.0 Baso # (Auto) 0.3 H WBC Differential . Differential Comment . PT 11.1 INR 1.1 APTT Sodium 115 L* Potassium 4.1 Chloride 73 L Carbon Dioxide 26.7 Anion Gap 15 BUN 48 H Creatinine 3.00 H Estimated GFR 20 L POC Glucose Random Glucose 1052 H* Calcium 8.3 L Prot Corrected Calcium Phosphorus Magnesium Total Bilirubin 0.8 AST 26 ALT 29 Alkaline Phosphatase 112 Total Creatine Kinase 327 H CK-MB (CK-2) 8.9 H CK-MB (CK-2) % 2.7 Troponin I Less than 0.02 L Total Protein 7.9 Albumin 3.5 Lipase Beta-Hydroxybutyric Acd TSH 2.090 Urine Color Urine Clarity Urine pH Ur Specific [place] Urine Protein Urine Glucose (UA) Urine Ketones Urine Occult Blood Urine Nitrate Urine Bilirubin Urine Urobilinogen Ur Leukocyte Esterase Urine RBC Urine WBC Ur Squamous Epith Cells Micro UA Comment Ur Microscopic Review Urine Culture Comments Urine Opiates Screen Ur Barbiturates Screen Ur Amphetamines Screen U Benzodiazepines Scrn Urine Cocaine Screen U Cannabinoids Screen 06/10/18 06/10/18 06/11/18 22:15 22:15 00:28 CBC w Diff WBC RBC Hgb Hct MCV MCH MCHC RDW Plt Count MPV Neut % (Auto) Lymph % (Auto) [place] % (Auto) Eos % (Auto) Baso % (Auto) Neut # (Auto) Lymph # (Auto) [place] # (Auto) Eos # (Auto) Baso # (Auto) WBC Differential Differential Comment PT INR APTT Sodium Potassium Chloride Carbon Dioxide Anion Gap BUN Creatinine Estimated GFR POC Glucose Greater than 600 H* Random Glucose Calcium Prot Corrected Calcium Phosphorus Magnesium Total Bilirubin AST ALT Alkaline Phosphatase Total Creatine Kinase CK-MB (CK-2) CK-MB (CK-2) % Troponin I Total Protein Albumin Lipase Beta-Hydroxybutyric Acd TSH Urine Color Yellow Urine Clarity Slightly cloudy Urine pH 6.0 Ur Specific [place] Less/equal 1.005 Urine Protein Negative Urine Glucose (UA) 1000 or greater H Urine Ketones Negative Urine Occult Blood Large H Urine Nitrate Negative Urine Bilirubin Negative Urine Urobilinogen 0.2 Ur Leukocyte Esterase Negative Urine RBC 51-189 H Urine WBC 0-5 Ur Squamous Epith Cells 6-10 H Micro UA Comment Culture not ind Ur Microscopic Review Microscopic reviewed Urine Culture Comments Culture not ind Urine Opiates Screen Neg Ur Barbiturates Screen Neg Ur Amphetamines Screen Neg U Benzodiazepines Scrn Neg Urine Cocaine Screen Pos H U Cannabinoids Screen Neg 06/11/18 06/11/18 06/11/18 02:05 02:30 03:24 CBC w Diff WBC RBC Hgb Hct MCV MCH MCHC RDW Plt Count MPV Neut % (Auto) Lymph % (Auto) [place] % (Auto) Eos % (Auto) Baso % (Auto) Neut # (Auto) Lymph # (Auto) [place] # (Auto) Eos # (Auto) Baso # (Auto) WBC Differential Differential Comment PT INR APTT Sodium Potassium Chloride Carbon Dioxide Anion Gap BUN Creatinine Estimated GFR POC Glucose 543 H* 310 H Random Glucose Calcium Prot Corrected Calcium Phosphorus Magnesium Total Bilirubin AST ALT Alkaline Phosphatase Total Creatine Kinase CK-MB (CK-2) CK-MB (CK-2) % Troponin I Less than 0.02 L Total Protein Albumin Lipase 134 Beta-Hydroxybutyric Acd 0.39 TSH Urine Color Urine Clarity Urine pH Ur Specific [place] Urine Protein Urine Glucose (UA) Urine Ketones Urine Occult Blood Urine Nitrate Urine Bilirubin Urine Urobilinogen Ur Leukocyte Esterase Urine RBC Urine WBC Ur Squamous Epith Cells Micro UA Comment Ur Microscopic Review Urine Culture Comments Urine Opiates Screen Ur Barbiturates Screen Ur Amphetamines Screen U Benzodiazepines Scrn Urine Cocaine Screen U Cannabinoids Screen 06/11/18 06/11/18 06/11/18 04:23 05:07 06:11 CBC w Diff WBC RBC Hgb Hct MCV MCH MCHC RDW Plt Count MPV Neut % (Auto) Lymph % (Auto) [place] % (Auto) Eos % (Auto) Baso % (Auto) Neut # (Auto) Lymph # (Auto) [place] # (Auto) Eos # (Auto) Baso # (Auto) WBC Differential Differential Comment PT INR APTT Sodium Potassium Chloride Carbon Dioxide Anion Gap BUN Creatinine Estimated GFR POC Glucose 320 H 315 H 279 H Random Glucose Calcium Prot Corrected Calcium Phosphorus Magnesium Total Bilirubin AST ALT Alkaline Phosphatase Total Creatine Kinase CK-MB (CK-2) CK-MB (CK-2) % Troponin I Total Protein Albumin Lipase Beta-Hydroxybutyric Acd TSH Urine Color Urine Clarity Urine pH Ur Specific [place] Urine Protein Urine Glucose (UA) Urine Ketones Urine Occult Blood Urine Nitrate Urine Bilirubin Urine Urobilinogen Ur Leukocyte Esterase Urine RBC Urine WBC Ur Squamous Epith Cells Micro UA Comment Ur Microscopic Review Urine Culture Comments Urine Opiates Screen Ur Barbiturates Screen Ur Amphetamines Screen U Benzodiazepines Scrn Urine Cocaine Screen U Cannabinoids Screen 06/11/18 06/11/18 06/11/18 06:42 06:42 06:42 CBC w Diff Auto diff final WBC 14.6 H RBC 5.24 Hgb 14.0 Hct 41.9 MCV 80.0 D MCH 26.7 L MCHC 33.4 RDW 11.8 Plt Count 139 L MPV 11.3 H Neut % (Auto) 76.7 H Lymph % (Auto) 13.9 [place] % (Auto) 4.5 Eos % (Auto) 0.3 Baso % (Auto) 4.6 H Neut # (Auto) 11.1 H Lymph # (Auto) 2.0 [place] # (Auto) 0.7 Eos # (Auto) 0.0 Baso # (Auto) 0.7 H WBC Differential . Differential Comment . PT 11.7 H INR 1.2 APTT 22.7 L Sodium 134 L D Potassium 3.1 L D Chloride 100 D Carbon Dioxide 22.5 Anion Gap 12 BUN 37 H Creatinine 2.10 H Estimated GFR 31 L POC Glucose Random Glucose 203 H D Calcium 7.3 L* D Prot Corrected Calcium 7.8 L Phosphorus 1.6 L Magnesium 2.6 H Total Bilirubin 0.4 AST 24 ALT 24 Alkaline Phosphatase 86 Total Creatine Kinase CK-MB (CK-2) CK-MB (CK-2) % Troponin I 0.04 Total Protein 6.2 L D Albumin 2.7 L D Lipase Beta-Hydroxybutyric Acd TSH Urine Color Urine Clarity Urine pH Ur Specific [place] Urine Protein Urine Glucose (UA) Urine Ketones Urine Occult Blood Urine Nitrate Urine Bilirubin Urine Urobilinogen Ur Leukocyte Esterase Urine RBC Urine WBC Ur Squamous Epith Cells Micro UA Comment Ur Microscopic Review Urine Culture Comments Urine Opiates Screen Ur Barbiturates Screen Ur Amphetamines Screen U Benzodiazepines Scrn Urine Cocaine Screen U Cannabinoids Screen 06/11/18 06/11/18 07:16 08:04 CBC w Diff WBC RBC Hgb Hct MCV MCH MCHC RDW Plt Count MPV Neut % (Auto) Lymph % (Auto) [place] % (Auto) Eos % (Auto) Baso % (Auto) Neut # (Auto) Lymph # (Auto) [place] # (Auto) Eos # (Auto) Baso # (Auto) WBC Differential Differential Comment PT INR APTT Sodium Potassium Chloride Carbon Dioxide Anion Gap BUN Creatinine Estimated GFR POC Glucose 178 H 132 H Random Glucose Calcium Prot Corrected Calcium Phosphorus Magnesium Total Bilirubin AST ALT Alkaline Phosphatase Total Creatine Kinase CK-MB (CK-2) CK-MB (CK-2) % Troponin I Total Protein Albumin Lipase Beta-Hydroxybutyric Acd TSH Urine Color Urine Clarity Urine pH Ur Specific [place] Urine Protein Urine Glucose (UA) Urine Ketones Urine Occult Blood Urine Nitrate Urine Bilirubin Urine Urobilinogen Ur Leukocyte Esterase Urine RBC Urine WBC Ur Squamous Epith Cells Micro UA Comment Ur Microscopic Review Urine Culture Comments Urine Opiates Screen Ur Barbiturates Screen Ur Amphetamines Screen U Benzodiazepines Scrn Urine Cocaine Screen U Cannabinoids Screen - Imaging Impressions Chest X-Ray 06/10/18 21:20 CONCLUSION: No acute cardiopulmonary disease. Head CT 06/10/18 21:20 CONCLUSION: Negative noncontrast head CT. No acute intracranial abnormality is identified. . Chest X-Ray 06/11/18 00:00 CONCLUSION: Underinflated with mild bibasilar airspace opacity most likely representing subsegmental atelectasis secondary to the under inflation or less likely airspace consolidation. Assessment and Plan - Assessment (1) Uncontrolled diabetes mellitus Code(s): E11.65 - Type 2 diabetes mellitus with hyperglycemia Status: Acute (2) Acute renal failure Code(s): N17.9 - Acute kidney failure, unspecified Status: Acute (3) Hypotension Code(s): I95.9 - Hypotension, unspecified Status: Acute (4) Hyponatremia Code(s): E87.1 - Hypo-osmolality and hyponatremia Status: Acute (5) Hypokalemia Code(s): E87.6 - Hypokalemia Status: Acute (6) Hypocalcemia Code(s): E83.51 - Hypocalcemia Status: Acute (7) Hypermagnesemia Code(s): E83.41 - Hypermagnesemia Status: Acute (8) Psychosis Code(s): F29 - Unspecified psychosis not due to a substance or known physiological condition Status: Acute (9) Substance abuse Code(s): F19.10 - Other psychoactive substance abuse, uncomplicated Status: Acute - Plan 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 -Josue act -Psychiatry evaluation -Patient was started on Precedex, however cause significant hypotension and has been discontinued -CT of the brain was done which did not indicate any acute abnormality -Obtain further workup to evaluate for any metabolic encephalopathy to predispose patient to psychosis Uncontrolled diabetes -Patient was on IV insulin -Awaiting hemoglobin A1c -Start long-acting Levemir -Accu-Cheks with sliding scale insulin Hypotension -Status post 4 L of IV fluid bolus -Continue IV fluid -Continue monitor blood pressure to keep map greater than 65 Electrolyte abnormalities with hyponatremia, hypokalemia, hypocalcemia, hypomagnesemia -Continue to monitor and replete as needed Acute renal failure -Continue IV fluid -Continue monitor renal function -Avoid nephrotoxins DVT prevention -Subcutaneous Lovenox -Sequential compression devices
[2018-06-11] MEDS: Insulin Detemir Inj 1,000 UNIT/10 ML Vial SQ SCH ×2 (11:49→21:35)
[2018-06-11] MEDS: Insulin NovoLOG Aspart Correctional Sugar Inj SQ SCH ×3 (12:17→21:36)
--- NOTE | 2018-06-11 13:44 | ECG ---
Date Performed: 06/10/2018 Time Performed: 21:42:17 PTAGE: 47 years EKG: Sinus rhythm LEFT ATRIAL ENLARGEMENT NONSPECIFIC T-WAVE ABNORMALITY ABNORMAL ECG Compared to PREVIOUS TRACING , there has been improvement in the inferior T-wave changes but no other significant serial change. PREVIOUS TRACIN02/23/2016 11.54 DOCTOR: Amanda Rodriguez Interpretating Date/Time 06/11/2018 13:43:48
[2018-06-11 14:04] LABS: Folate 8.9 ng/mL (3.1-17.5)
[2018-06-11 16:54] LABS: Potassium 3.9 meq/L (3.5-5.1)
[2018-06-11 17:05] LABS: Calcium 7.3 mg/dL (8.5-10.1); Carbon Dioxide 21.7 meq/L (21.0-32.0)
[2018-06-11 17:19] LABS: Total Protein 6.8 g/dL (6.4-8.2)
--- NOTE | 2018-06-11 19:52 | P.CONPSY ---
Provisional Diagnosis Admission Date: June 10, 2018 23:05 [place].: Unspecified psychosis, R/O substance-induced psychosis, R/O delusions of parasitosis, cocaine and opiates use disorder, on Methadone 150mg History of Present Illness Service: [facility] Primary Care Provider: Karlo Medrano MD Family Provider: Karlo Medrano MD History of Present Illness: The patient is a 47-year-old -[place] woman, domiciled in [place] with her , no kids, unemployed, supported by disability, with a psychiatric history of cocaine and opiates use disorder, the patient is a methadone 150 mg, no previous suicidal attempts, no previous psychiatric hospitalizations, she has had medical history of endocarditis, IV drug use, DM, who was recently seen by critical care management for diabetic ketoacidosis. Patient originally presented the hospital because of general malaise, weakness, lethargy gait and weakness in upper extremities. Patient had workup done emergency department found to have diabetic ketoacidosis. Patient admitted to the hospital with diabetic ketoacidosis you on insulin. Upon review of medical records patient had non-anion gap acidosis. Patient's diabetes was controlled with insulin IV. Critical care team transferred to medical service. Apparently the patient had psychosis, increased agitation throughout the evening. Patient had to be put in restraints, started on Precedex drip. 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 Patient does have history of smoking crack cocaine and she openly admits it. Patient has significant medical issues in which she required 4 L of IV fluid boluses due to hypotension. Patient continued hypotension throughout the evening and morning. Patient has been taken off the Precedex drip at this time, still remains in restraints. Upon seeing the patient this morning the only complaint that she has is that she wants to leave the hospital. I discussed with the patient that she have life-threatening conditions such as severe hypotension that is not conducive with perfusing her organs. As uncontrolled diabetes, substance abuse psychosis. Patient does not care. Patient wants to be discharged from the hospital. She indicates that she wants to have her pain medication to include methadone, gabapentin. I discussed with her that we cannot prescribe this medication at this time due to her continued hypotension. Patient continued to argue and demanding to be discharged home despite the fact that she is critically ill. Patient states that "she much rather be ". Patient is not willing to undergo involuntary treatment. Patient at risk for worsening medical condition and even without treatment. This was discussed with the patient and she does not care. She still appears to be in substance abuse psychosis. Patient will be Josue acted for her own safety. Consulted to psychiatry to addressed suicidal ideation and potential delusions. On my psychiatric evaluation I find a patient that is superficially cooperative, irritable, oppositional. She seems to be quite guarded, may be paranoid and internally preoccupied. The patient says that she is feeling okay. She says that she does not need any psychiatric intervention. She is now here for psychiatric reasons, she says. The patient denies symptoms of depression, denies anxiety, denies hesham and psychosis. The patient responses are short and monosyllabic. She is oriented 3. However, is through her ,Tom Rinaldi, that I know that the patient has been quite obsessed with parasites and bugs. She has been treated multiple times with medication for lice and scabies. Sometimes she becomes quite distressed and anxious stating to her that bugs are flying in her skin. She also has been scratching and self mutilating herself to get the bugs out of her skin. He clarifies that she does not have any psychiatric history. She has never tried to commit suicide. She was a heroine and cocaine user in the past, and as far he knows she has started using cocaine again recently. Is quite concerned about these changes in her mental status and especially to her recent suicidal statements. PPHx: No previous psychiatric history, no prepsychotic hospitalizations, no suicide attempt PMHx: Diabetes, endocarditis Substance Hx : History of IV drug use of opiates, cocaine, methadone 150 [place] Family Hx: No family psychiatric Social Hx: The patient was born and raised in [facility], she lives in [place] with her , no kids, she is unemployed, supported by disability, her highest level of education is high school. Review of Systems Psychiatric: Reports depression, Reports irritability, Reports mood swings, Reports paranoia, Reports tactile hallucinations, Reports thoughts of hurting/ killing yourself PMFSH - History History Provided By: Patient - Medical History Medical History: Medical History (Last Reviewed 06/11/18 @ 08:50 by Elías Sharma) Drug abuse, IV Scabies Anxiety Heart valve problem Hypertension - Surgical History Surgical History: Surgical History (Last Reviewed 06/11/18 @ 08:50 by Elías Sharma) Hx of knee surgery - Tobacco History Second Hand Smoke Exposure: Yes Tobacco Use In Past 30 Days: Yes Smoking Status: Current every day smoker Tobacco Type: Cigarettes - Alcohol History How Often Do You Have a Drink Containing Alcohol: Monthly or less - Substance Use History Substance History: Active Abuse, Past History - Substance Use Type Marijuana Status: Active Route Used: Inhalation Frequency: daily - Travel History Recent Travel in the [place] Within the Last 8 Weeks: No Recent Travel Out of the Country Within the Last 8 Weeks: No - Immunization History Tetanus Immunization: <5 Years Hx Influenza Vaccine This Season: No Medications and Allergies Active Medications: Active Medications Acetaminophen (Tylenol) 650 mg PO Q6H PRN PRN Reason: PAIN 1-10 AND/OR FEVER >101F Al Hydroxide/Mg Hydroxide (Milk Of [place] Liq) 30 ml PO Q12H PRN PRN Reason: Mild Constipation Albuterol (Duoneb Neb (Prn)) 1 ampul NEB Q2HR NEB PRN PRN Reason: WHEEZING Bisacodyl (Dulcolax Supp) 10 mg RECTAL DAILY PRN PRN Reason: SEVERE CONSITIPATION Chlorhexidine Gluconate (Chlorhexidine 2% Cloth) 3 pack TOPICAL DAILY@0400 [facility] Stop: 06/16/18 03:59 Last Admin: 06/11/18 07:39 Dose: Not Given Chlorhexidine Gluconate (Chlorhexidine 2% Cloth) 3 pack TOPICAL DAILY@0400 PRN PRN Reason: Extra cloth needed Stop: 06/16/18 03:59 Dextrose (D50w Vial) 50 ml IV.PUSH UNSCH PRN PRN Reason: PER HYPOGLYCEMIA PROTOCOL Enoxaparin Sodium (Lovenox Inj) 30 mg SQ Q24H [facility] Gabapentin (Neurontin) 600 mg PO DAILY [facility] Last Admin: 06/11/18 09:53 Dose: 600 mg Glucagon (Glucagon Inj) 1 mg OTHER PRN PRN PRN Reason: for Hypoglycemia Protocol Hydroxyzine Pamoate (Vistaril) 25 mg PO Q8H PRN PRN Reason: itching Sodium Chloride (Ns Inj) 1,000 mls @ 0 mls/hr IV.SIG BOLUS [facility] Stop: 06/11/18 21:31 Last Infusion: 06/11/18 00:10 Dose: Infused Dextrose/Sodium Chloride (D5w/Normal Saline Inj) 1,000 mls @ 200 mls/hr IV.CONT .Q5H [facility] Last Infusion: 06/11/18 12:15 Dose: Infused Sodium Chloride (Ns Inj) 1,000 mls @ 250 mls/hr IV.CONT .Q4H [facility] Last Admin: 06/11/18 17:06 Dose: Not Given Potassium Chloride (Kcl 40 Meq Premix Inj) 40 meq in 100 mls @ 100 mls/hr IV.SIG Q1H PRN PRN Reason: for Initial K+ ONLY < 3.5 Potassium Chloride (Kcl 40 Meq Premix Inj) 40 meq in 100 mls @ 50 mls/hr IV.SIG Q2H PRN PRN Reason: for Subsequent K+ < 3.5 Potassium Chloride (Kcl 20 Meq Premix Inj) 20 meq in 100 mls @ 100 mls/hr IV.SIG Q1H PRN PRN Reason: for K+ 3.5 to 4.4 Last Infusion: 06/11/18 08:00 Dose: Infused Potassium Chloride (Kcl 20 Meq Premix Inj) 20 meq in 100 mls @ 100 mls/hr IV.SIG Q1H PRN PRN Reason: for K+ 4.5 to 5 Potassium Chloride (Kcl 20 Meq Premix Inj) 20 meq in 100 mls @ 50 mls/hr IV.SIG Q2H PRN PRN Reason: for Initial K+ ONLY < 3.5 Potassium Chloride (Kcl 20 Meq Premix Inj) 20 meq in 100 mls @ 50 mls/hr IV.SIG Q2H PRN PRN Reason: for Subsequent K+ < 3.5 Last Infusion: 06/11/18 13:02 Dose: Infused Potassium Chloride (Kcl 20 Meq Premix Inj) 20 meq in 100 mls @ 50 mls/hr IV.SIG Q2H PRN PRN Reason: for K+ 3.5 to 4.4 Potassium Chloride (Kcl 20 Meq Premix Inj) 20 meq in 100 mls @ 50 mls/hr IV.SIG Q2H PRN PRN Reason: for K+ 4.5 to 5 Sodium Phosphate 15 mmol/ (Sodium Chloride) 105 mls @ 25 mls/hr IV.SIG UNSCH PRN PRN Reason: for Phosphate Level < 1.0 Dexmedetomidine HCl 200 mcg/ (Sodium Chloride) 50 mls @ 5.59 mls/hr IV.CONT TITRATE PRN; Protocol PRN Reason: Per Protocol Last Titration: 06/11/18 06:02 Dose: 0 mcg/kg/hr, 0 mls/hr Insulin Aspart (Novolog Insulin Correctional Sugar Inj) 0 unit SQ ACHS [facility]; Protocol Last Admin: 06/11/18 17:21 Dose: 9 unit Insulin Detemir (Levemir Inj) 5 unit SQ BID [facility] Last Admin: 06/11/18 11:49 Dose: 5 unit Lactulose (Lactulose Liq) 30 ml PO DAILY PRN PRN Reason: SEVERE CONSITIPATION Lorazepam (Ativan Inj) 1 mg IV.PUSH Q4H PRN PRN Reason: AGITATION Metoclopramide HCl (Reglan Inj) 5 mg IV.PUSH Q6HR [facility]; Protocol Last Admin: 06/11/18 19:31 Dose: Not Given Ondansetron HCl (Zofran Inj) 4 mg IV.PUSH Q6H PRN PRN Reason: NAUSEA OR VOMITING Senna/Docusate Sodium (Eri-Colace) 1 tab PO BID [facility] Last Admin: 06/11/18 09:53 Dose: 1 tab Sennosides (Senokot) 17.2 mg PO Q12H PRN PRN Reason: Moderate Constipation Sodium Bicarbonate (Sodium Bicarbonate 8.4% Inj) 50 meq IV.PUSH UNSCH PRN PRN Reason: for pH 6.9 to 7.0 Sodium Bicarbonate (Sodium Bicarbonate 8.4% Inj) 100 meq IV.PUSH UNSCH PRN PRN Reason: for pH less than 6.9 Sodium Chloride (Ns Flush) 2 ml IV.FLUSH BID [facility] Last Admin: 06/11/18 09:53 Dose: 2 ml Sodium Chloride (Ns Flush) 2 ml IV.FLUSH PRN PRN PRN Reason: FLUSH AFTER USING IV ACCESS Temazepam (Restoril) 15 mg PO HS PRN PRN Reason: INSOMNIA Allergies Allergy/AdvReac Type Severity Reaction Status Date / Time vancomycin Allergy Severe Anaphylaxis Verified 06/10/18 20:34 *MDRO Multi-Drug Resistant AdvReac Unknown Rash Uncoded 05/30/18 20:09 Organism Home Medications Medication Instructions Recorded Confirmed Type clonidine HCl 0.2 mg PO TID 05/30/18 06/11/18 History gabapentin 600 mg PO TID 05/30/18 06/11/18 History lisinopril-hydrochlorothiazide 1 tab PO DAILY 05/30/18 06/11/18 History methadone 5 mg PO EVERY OTHER DAY 05/30/18 05/30/18 History Exam Vital signs: Vital Signs 06/10/18 20:40 06/10/18 21:20 06/10/18 22:58 Temperature 97.7 F Pulse Rate 95 H 89 80 Respiratory Rate 18 20 Blood Pressure 78/50 L 86/59 L Pulse Oximetry 96 96 96 06/10/18 23:46 06/11/18 01:00 06/11/18 02:00 Temperature 98.9 F Pulse Rate 79 98 H 108 H Respiratory Rate 18 26 H 26 H Blood Pressure 107/68 158/95 H 166/88 H Pulse Oximetry 96 97 98 06/11/18 03:00 06/11/18 03:02 06/11/18 03:07 Temperature Pulse Rate 102 H 102 H Respiratory Rate 28 H Blood Pressure 95/64 L Pulse Oximetry 98 98 06/11/18 04:00 06/11/18 05:00 06/11/18 06:00 Temperature Pulse Rate 74 66 Respiratory Rate 16 14 20 Blood Pressure 86/56 L 84/60 L 91/47 L Pulse Oximetry 100 98 06/11/18 07:00 06/11/18 07:06 06/11/18 07:10 Temperature 97.6 F Pulse Rate 62 62 70 Respiratory Rate 9 L 9 L 43 H Blood Pressure 80/50 L 78/50 L 72/43 L Pulse Oximetry 89 L 89 L 92 L 06/11/18 07:42 06/11/18 08:00 06/11/18 08:15 Temperature Pulse Rate 62 62 64 Respiratory Rate 10 L 10 L 8 L Blood Pressure 91/47 L 89/52 L 86/54 L Pulse Oximetry 94 L 91 L 91 L 06/11/18 08:46 06/11/18 09:00 06/11/18 09:16 Temperature Pulse Rate 74 90 84 Respiratory Rate 9 L 13 30 H Blood Pressure 84/70 L 161/94 H 137/99 H Pulse Oximetry 86 L 96 96 06/11/18 10:00 06/11/18 12:00 06/11/18 13:00 Temperature 98.0 F Pulse Rate 74 60 84 Respiratory Rate 13 15 15 Blood Pressure 122/71 113/86 112/61 Pulse Oximetry 99 100 95 06/11/18 15:00 06/11/18 18:00 Temperature Pulse Rate 94 H 94 H Respiratory Rate 22 27 H Blood Pressure 114/70 122/67 Pulse Oximetry 92 L 98 Intake & Output 06/11/18 06/11/18 06/12/18 06:59 18:59 06:59 Intake Total 4150 / 4150 2140 / 2140 Output Total 0 / 0 800 / 800 Balance 4150 / 4150 1340 / 1340 Weight 112.9 kg Intake: IV 4150 / 4150 1180 / 1180 Precedex Inj 200 MCG In NS Inj 50 / 50 48 ML @ 0.2 MCG/KG/HR 5.59 mls/ hr IV.CONT TITRATE PRN Rx#: [id number] D5W/Normal Saline Inj 1,000 ML 700 / 700 @ 200 mls/hr IV.CONT .Q5H [facility] Rx#:[id number] NovoLIN R (IV Infusion) 100 180 / 180 UNIT In NS Inj 99 ML @ Per Protocol IV.CONT TITRATE PRN Rx #:[id number] KCl 20 mEq Premix Inj 20 meq In 100 / 100 300 / 300 100 ml @ 50 mls/hr IV.SIG Q2H PRN Rx#:[id number] NS Inj 1,000 ML @ 1000 mls/hr 4000 / 4000 IV.SIG .Q1H [facility] Rx#:[id number] Oral 960 / 960 Output: Urine 0 / 0 800 / 800 Other: # Incontinent Voids 2 Date of Last Bowel Movement 06/11/18 Narrative: No tremors, no EPS, no psychomotor agitation retardation, no withdrawal present - Constitutional moderate distress - Routine HEENT Exam Head: Present: normocephalic, atraumatic Eye: Present: EOMI ENT: Present: mucous membranes moist Mental Status Examination Appearance: Appropriate Consciousness: Alert Orientation: x4 Motor Activity: Normal gait Speech: Unremarkable Language: Adequate Fund of Knowledge: Adequate Attention and Concentration: Adequate Memory: Unremarkable Mood: Angry Affect: Irritable Thought Process & Associations: Goal directed Thought Content: Appropriate Hallucination Type: Visual Delusion Type: None, Paranoid, Somatic Suicidal Ideation: No Suicidal Plan: No Suicidal Intention: No Homicidal Ideation: No Homicidal Plan: No Homicidal Intention: No Insight: Poor Judgment: Poor Assessment and Plan - Assessment (1) Unspecified psychosis Code(s): F29 - Unspecified psychosis not due to a substance or known physiological condition Status: Acute - Plan Plan: Estimated LOS: [] days On my psychiatric evaluation the patient presents quite oppositional, guarded, internally preoccupied, refusing to cooperate with psychiatry. This is a patient that, as per , has been quite delusional, stating that she has bugs parasites crawling in her skin. She has been medically clear for this condition multiple times, and the patient continues to be quite distressed and anxious about this conditions. At some point, as per , the patient is not just feeling bugs crawling, she said that she sees them flying. She also has been expressing suicidal ideation to the medical team during this hospitalization. She does not have any psychiatric history, she does not have any previous psychiatric hospitalization or suicidal attempts. However, she has a significant history of IV opiates use in the past, and cocaine use. As per , the patient has restarted the use of cocaine recently. Given the level of psychosis and also suicidal ideation, the patient has a elevated risk of danger to self, she is going to be admitted in psychiatry for stabilization and safety. Current presentation seems to be related with Formication secondary to cocaine abuse, but a primary psychotic disorder, delusion of parasitosis, needs to be carefully ruled out. Patient needs psychiatric admission for stabilization of psychosis. I will start Seroquel 25 mg twice daily. Transfer patient to psychiatry was medically stable. Justification for Continued Inpatient Stay: Psychiatric admission recommended
--- NOTE | 2018-06-11 21:42 | ECG ---
Date Performed: 06/11/2018 Time Performed: 06:18:00 PTAGE: 47 years EKG: Sinus rhythm LEFT ATRIAL ENLARGEMENT SEPTAL MYOCARDIAL INFARCTION NONSPECIFIC ST/T ABNORMALITIES ABNORMAL ECG PREVIOUS TRACING : 06/10/2018 21.42 Compared to previous tracing, nonspecific ST/T changes are now present. DOCTOR: Jamil Ramos Interpretating Date/Time 06/11/2018 21:41:04
[2018-06-12] MEDS: Sod Chloride 0.9% Inj 1,000 ML IV.CONT SCH ×6 (00:52→21:44)
[2018-06-12] MEDS: Dextrose 5%/NaCl 0.9% Inj 1,000 ML IV.CONT SCH ×5 (00:53→21:44)
[2018-06-12] MEDS: Enoxaparin Inj 30 MG/0.3 ML Syringe SQ SCH (00:57)
[2018-06-12] MEDS ORDERED: Insulin NovoLOG Aspart Correctional Sugar Inj SQ ONE (01:45)
[2018-06-12] MEDS: Chlorhexidine Gluconate 2% 1 Pack (2 Cloths) TOPICAL SCH (04:56)
[2018-06-12 05:19] LABS: Potassium 3.5 meq/L (3.5-5.1)
[2018-06-12 05:21] LABS: Calcium 8.1 mg/dL (8.5-10.1)
[2018-06-12 05:23] LABS: Carbon Dioxide 21.9 meq/L (21.0-32.0)
[2018-06-12] MEDS: Gabapentin 300 MG Capsule PO SCH (08:10)
[2018-06-12] MEDS: Senna/Docusate Sodium 8.6/50 MG Tablet PO SCH ×2 (08:10→21:55)
[2018-06-12] MEDS: Insulin Detemir Inj 1,000 UNIT/10 ML Vial SQ SCH (08:11)
[2018-06-12] MEDS: Insulin NovoLOG Aspart Correctional Sugar Inj SQ SCH ×4 (08:11→21:56)
[2018-06-12 10:48] LABS: Baso # (Auto) 0.3 th/mm3 (0.0-0.2); Baso % (Auto) 1.8 % (0.0-2.0); Eos # (Auto) 0.1 th/mm3 (0.0-0.4); Eos % (Auto) 0.5 % (0.0-4.0); Hematocrit 44.1 % (35.0-46.0); Hemoglobin 14.7 gm/dL (11.6-15.3); Lymph # (Auto) 2.3 th/mm3 (1.0-4.8); Lymph % (Auto) 12.9 % (9.0-44.0); Mean Corpuscular HGB Conc 33.4 % (32.0-36.0); Mean Corpuscular Hemoglobin 26.9 pg (27.0-34.0); Mean Corpuscular Volume 80.5 fL (80.0-100.0); Mono # (Auto) 1.4 th/mm3 (0.0-0.9); Mono % (Auto) 7.8 % (0.0-8.0); Neut # (Auto) 13.7 th/mm3 (1.8-7.7); Platelet Count 166 th/mm3 (150-450); Red Blood Count 5.48 mil/mm3 (4.00-5.30); Red Cell Distribution Width 12.1 % (11.6-17.2); White Blood Count 17.8 th/mm3 (4.0-11.0)
[2018-06-12] MEDS ORDERED: Insulin Aspart Prot 70/30 1,000 UNITS/10 ML Vial SQ ONE (17:02)
--- NOTE | 2018-06-12 17:06 | P.PN ---
Subjective Interval history: Follow up for possible pneumonia and diabetes. Patient is currently doing well. She reports some cough and continues to have weakness. Per RN, patient was much more alert and active before her came. Psychiatry evaluated on 06/11/2018 and recommended a short stay in Psychiatry once medically cleared. Physical Exam Vital signs: Vital Signs 06/11/18 18:00 06/11/18 19:09 06/11/18 20:00 Temperature Pulse Rate 94 H 84 84 Respiratory Rate 27 H 13 Blood Pressure 122/67 110/67 Pulse Oximetry 98 94 L 06/11/18 20:09 06/11/18 20:28 06/11/18 21:00 Temperature 98.8 F Pulse Rate 84 72 Respiratory Rate 17 20 Blood Pressure 142/68 H 142/80 H Pulse Oximetry 96 96 98 06/11/18 22:09 06/11/18 23:09 06/12/18 00:22 Temperature 99.0 F Pulse Rate 84 84 92 H Respiratory Rate 14 15 12 Blood Pressure 100/80 108/66 111/96 H Pulse Oximetry 95 98 93 L 06/12/18 01:00 06/12/18 03:22 06/12/18 04:00 Temperature 100.1 F H Pulse Rate 92 H 90 96 H Respiratory Rate 20 16 20 Blood Pressure 117/92 H 108/68 123/88 Pulse Oximetry 96 96 96 06/12/18 05:00 06/12/18 06:00 06/12/18 08:00 Temperature 99.8 F H Pulse Rate 96 H 96 H 118 H Respiratory Rate 18 20 30 H Blood Pressure 117/79 112/77 123/72 Pulse Oximetry 96 96 95 06/12/18 11:00 06/12/18 12:00 06/12/18 13:00 Temperature 100.0 F H Pulse Rate 132 H 110 H 120 H Respiratory Rate 28 H 21 20 Blood Pressure 115/45 L 99/52 L 105/48 L Pulse Oximetry 06/12/18 14:00 06/12/18 16:00 Temperature 99.1 F Pulse Rate 116 H 102 H Respiratory Rate 23 24 Blood Pressure 117/77 131/80 Pulse Oximetry 95 Intake & Output 06/11/18 06/12/18 06/12/18 18:59 06:59 18:59 Intake Total 2140 / 2140 Output Total 800 / 800 800 / 800 Balance 1340 / 1340 -800 / -800 Weight 117.2 kg Intake: IV 1180 / 1180 D5W/Normal Saline Inj 1,000 ML 700 / 700 @ 200 mls/hr IV.CONT .Q5H [facility] Rx#:[id number] NovoLIN R (IV Infusion) 100 180 / 180 UNIT In NS Inj 99 ML @ Per Protocol IV.CONT TITRATE PRN Rx #:[id number] KCl 20 mEq Premix Inj 20 meq In 300 / 300 100 ml @ 50 mls/hr IV.SIG Q2H PRN Rx#:[id number] Oral 960 / 960 Output: Urine 800 / 800 800 / 800 Other: # Incontinent Voids 2 Date of Last Bowel Movement 06/11/18 06/12/18 06/12/18 # Bowel Movements 1 Narrative: GENERAL: Well-developed, well-nourished, in no acute distress. Patient is awake , she is orientated to person. HEENT: Head is normocephalic without any lesions or masses noted. Facial features are symmetric. Eyes: Pupils equal round reactive to light. Extraocular muscles are intact. Conjunctivae were clear. Oropharyngeal: Pharynx without any erythema edema. Tongue is midline without deviation. Buccal mucosa is dry with dried phlegm in the corners of her mouth NECK: Supple without any masses. Trachea midline no deviation. No JVD, no bruits are appreciated CARDIAC: Regular rhythm, regular rate. S1/S2 are heard. No murmurs gallops or rubs. LUNGS: Clear to auscultation bilaterally. No wheeze, rhonchi or rales. No use of accessory muscles on inspiration or expiration. ABDOMEN: Soft, nontender. Nondistended. Bowel sounds heard in all 4 quadrants. No organomegaly or masses. Negative rebound, negative guarding EXTREMITIES: No edema, pulses are equal bilaterally. No cyanosis or clubbing NEUROLOGY: Patient appears to be very agitated, heightened mood. Patient indicates that she wants to go home if not she would rather be . Cranial nerves II through XII grossly intact. Muscle strength 5/5 in upper and lower extremities bilaterally. Deep tendon reflexes are 2+ in upper and lower extremities bilaterally. Results - Labs CBC & Chem 7: 06/12/18 10:40 06/12/18 05:00 Laboratory Results - last 24 hr 06/11/18 06/11/18 06/11/18 11:41 16:25 16:36 CBC w Diff WBC RBC Hgb Hct MCV MCH MCHC RDW Plt Count MPV Neut % (Auto) Lymph % (Auto) [place] % (Auto) Eos % (Auto) Baso % (Auto) Neut # (Auto) Lymph # (Auto) [place] # (Auto) Eos # (Auto) Baso # (Auto) WBC Differential Differential Comment Sodium 132 L Potassium 3.9 D Chloride 98 Carbon Dioxide 21.7 Anion Gap 12 BUN 31 H Creatinine 1.80 H Estimated GFR 37 L POC Glucose 447 H Random Glucose 443 H D Calcium 7.3 L* Prot Corrected Calcium 7.5 L Total Protein 6.8 D RPR Nonreactive 06/11/18 06/11/18 06/12/18 16:38 20:06 00:50 CBC w Diff WBC RBC Hgb Hct MCV MCH MCHC RDW Plt Count MPV Neut % (Auto) Lymph % (Auto) [place] % (Auto) Eos % (Auto) Baso % (Auto) Neut # (Auto) Lymph # (Auto) [place] # (Auto) Eos # (Auto) Baso # (Auto) WBC Differential Differential Comment Sodium Potassium Chloride Carbon Dioxide Anion Gap BUN Creatinine Estimated GFR POC Glucose 465 H* 393 H 385 H Random Glucose Calcium Prot Corrected Calcium Total Protein RPR 06/12/18 06/12/18 06/12/18 04:51 05:00 07:29 CBC w Diff WBC RBC Hgb Hct MCV MCH MCHC RDW Plt Count MPV Neut % (Auto) Lymph % (Auto) [place] % (Auto) Eos % (Auto) Baso % (Auto) Neut # (Auto) Lymph # (Auto) [place] # (Auto) Eos # (Auto) Baso # (Auto) WBC Differential Differential Comment Sodium 133 L Potassium 3.5 Chloride 100 Carbon Dioxide 21.9 Anion Gap 11 BUN 19 H Creatinine 1.30 H Estimated GFR 53 L POC Glucose 227 H 218 H Random Glucose 244 H D Calcium 8.1 L D Prot Corrected Calcium Total Protein RPR 06/12/18 06/12/18 06/12/18 10:40 12:10 16:44 CBC w Diff Auto diff final WBC 17.8 H RBC 5.48 H Hgb 14.7 Hct 44.1 MCV 80.5 MCH 26.9 L MCHC 33.4 RDW 12.1 Plt Count 166 MPV 12.0 H Neut % (Auto) 77.0 H Lymph % (Auto) 12.9 [place] % (Auto) 7.8 Eos % (Auto) 0.5 Baso % (Auto) 1.8 Neut # (Auto) 13.7 H Lymph # (Auto) 2.3 [place] # (Auto) 1.4 H Eos # (Auto) 0.1 Baso # (Auto) 0.3 H WBC Differential . Differential Comment . Sodium Potassium Chloride Carbon Dioxide Anion Gap BUN Creatinine Estimated GFR POC Glucose 305 H 522 H* Random Glucose Calcium Prot Corrected Calcium Total Protein RPR Microbiology 06/11/18 06:42 Blood - Peripheral Aerobic Blood Culture - Preliminary No growth in 1 day 06/11/18 06:42 Blood - Peripheral Anaerobic Blood Culture - Preliminary No growth in 1 day Assessment and Plan - Assessment (1) Uncontrolled diabetes mellitus Code(s): E11.65 - Type 2 diabetes mellitus with hyperglycemia Status: Acute (2) Acute renal failure Code(s): N17.9 - Acute kidney failure, unspecified Status: Acute (3) Hypotension Code(s): I95.9 - Hypotension, unspecified Status: Acute (4) Hyponatremia Code(s): E87.1 - Hypo-osmolality and hyponatremia Status: Acute (5) Hypokalemia Code(s): E87.6 - Hypokalemia Status: Acute (6) Hypocalcemia Code(s): E83.51 - Hypocalcemia Status: Acute (7) Hypermagnesemia Code(s): E83.41 - Hypermagnesemia Status: Acute (8) Psychosis Code(s): F29 - Unspecified psychosis not due to a substance or known physiological condition Status: Acute (9) Substance abuse Code(s): F19.10 - Other psychoactive substance abuse, uncomplicated Status: Acute - Plan 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 -Josue act -Psychiatry evaluation -CT of the brain was done which did not indicate any acute abnormality Possible pneumonia - WBC around 17K. - Will start patient on Ceftriaxone 2g Qday and Levaquin 750mg Qday. - CBC in the AM. If improved, we can probably keep her on Levaquin only. Uncontrolled diabetes - Levemir 15 units QHS and sliding scale insulin. Up-titrate as needed. May need pre-meal coverage. Electrolyte abnormalities with hyponatremia, hypokalemia, hypocalcemia, hypomagnesemia -Continue to monitor and replete as needed Acute kidney injury -Continue monitor renal function -Avoid nephrotoxins DVT prevention -Subcutaneous Lovenox Discharge plan: Dr. Karlo Medrano will take over patient's care on 06/14/2018. Patient can be discharged to Psychiatry if leukocytosis improves on Abx.
[2018-06-12] MEDS: levoFLOXacin 750 MG Tablet PO SCH (17:54)
[2018-06-12] MEDS ORDERED: Insulin Detemir Inj 1,000 UNIT/10 ML Vial SQ SCH (21:00)
[2018-06-13] MEDS: Enoxaparin Inj 30 MG/0.3 ML Syringe SQ SCH (01:12)
[2018-06-13] MEDS: Sod Chloride 0.9% Inj 1,000 ML IV.CONT SCH ×4 (01:12→17:32)
[2018-06-13] MEDS: Dextrose 5%/NaCl 0.9% Inj 1,000 ML IV.CONT SCH ×2 (01:23→06:49)
[2018-06-13] MEDS: Chlorhexidine Gluconate 2% 1 Pack (2 Cloths) TOPICAL SCH (04:56)
[2018-06-13] MEDS: Insulin NovoLOG Aspart Correctional Sugar Inj SQ SCH ×3 (08:10→17:31)
[2018-06-13] MEDS: Gabapentin 300 MG Capsule PO SCH ×3 (08:11→17:26)
[2018-06-13] MEDS: Senna/Docusate Sodium 8.6/50 MG Tablet PO SCH (08:11)
[2018-06-13 11:42] LABS: Baso # (Auto) 0.3 th/mm3 (0.0-0.2); Baso % (Auto) 1.7 % (0.0-2.0); Eos # (Auto) 0.1 th/mm3 (0.0-0.4); Eos % (Auto) 0.6 % (0.0-4.0); Hematocrit 44.9 % (35.0-46.0); Hemoglobin 15.7 gm/dL (11.6-15.3); Lymph # (Auto) 1.5 th/mm3 (1.0-4.8); Lymph % (Auto) 9.7 % (9.0-44.0); Mean Corpuscular HGB Conc 35.1 % (32.0-36.0); Mean Corpuscular Hemoglobin 27.6 pg (27.0-34.0); Mean Corpuscular Volume 78.8 fL (80.0-100.0); Mean Platelet Volume 12.3 fL (7.0-11.0); Mono # (Auto) 1.3 th/mm3 (0.0-0.9); Mono % (Auto) 8.1 % (0.0-8.0); Neut # (Auto) 12.5 th/mm3 (1.8-7.7); Neut % (Auto) 79.9 % (16.0-70.0); Platelet Count 127 th/mm3 (150-450); Red Cell Distribution Width 12.6 % (11.6-17.2); White Blood Count 15.7 th/mm3 (4.0-11.0)
--- NOTE | 2018-06-13 12:03 | P.PN ---
Subjective Interval history: Patient stable ok to transfer to Psych floor at [facility]. ...d/w RN and patient. Blood sugar high increased Levemir. to 25 units daily. Physical Exam Vital signs: Vital Signs 06/12/18 13:00 06/12/18 14:00 06/12/18 16:00 Temperature 99.1 F Pulse Rate 120 H 116 H 102 H Respiratory Rate 20 23 24 Blood Pressure 105/48 L 117/77 131/80 Pulse Oximetry 95 06/12/18 17:00 06/12/18 18:00 06/12/18 18:24 Temperature Pulse Rate 110 H 122 H 118 H Respiratory Rate 27 H 17 18 Blood Pressure 115/70 97/62 L 87/63 L Pulse Oximetry 06/12/18 18:25 06/12/18 19:00 06/12/18 19:14 Temperature 99.8 F H Pulse Rate 118 H 113 H 112 H Respiratory Rate 17 25 H 16 Blood Pressure 123/68 109/81 134/68 Pulse Oximetry 96 06/12/18 19:15 06/12/18 20:00 06/12/18 21:02 Temperature 98.9 F Pulse Rate 110 H 110 H Respiratory Rate 18 Blood Pressure 109/81 135/75 Pulse Oximetry 96 06/12/18 22:00 06/12/18 23:00 06/12/18 23:10 Temperature 98.9 F Pulse Rate 120 H 107 H 108 H Respiratory Rate 25 H 18 20 Blood Pressure 134/92 H 146/96 H 146/96 H Pulse Oximetry 06/13/18 00:00 06/13/18 01:18 06/13/18 02:00 Temperature Pulse Rate 104 H 118 H 106 H Respiratory Rate 20 15 16 Blood Pressure 121/74 163/80 H 166/82 H Pulse Oximetry 06/13/18 03:00 06/13/18 04:00 06/13/18 05:00 Temperature 98.7 F 98.5 F Pulse Rate 100 H 106 H 108 H Respiratory Rate 16 17 16 Blood Pressure 139/69 158/86 H 151/85 H Pulse Oximetry 06/13/18 06:00 Temperature 97.5 F L Pulse Rate 144 H Respiratory Rate 24 Blood Pressure 151/85 H Pulse Oximetry Intake & Output 06/12/18 06/13/18 06/13/18 18:59 06:59 18:59 Intake Total 960 / 960 1100 / 1100 Balance 960 / 960 1100 / 1100 Weight 118.4 kg Intake: IV 100 / 100 Rocephin Inj 2,000 MG In NS Inj 100 / 100 100 ML @ 200 mls/hr IV.SIG Q24H KARLA Rx#:[id number] Oral 960 / 960 1000 / 1000 Other: # Voids 4 5 # Incontinent Voids 2 Date of Last Bowel Movement 06/12/18 06/12/18 - Constitutional no acute distress - Routine HEENT Exam Head: Present: normocephalic, atraumatic ENT: Present: mucous membranes moist - Routine Neck Exam Present: supple, full ROM - Routine Respiratory Exam Present: CTA bilaterally - Routine Cardiovascular Exam Present: RRR, S1, S2 - Routine Abdominal Exam Present: soft, normoactive bowel sounds - Routine Extremities Exam Present: full ROM - Routine Skin Exam Present: intact, dry, warm - Routine Neurological Exam Present: alert, oriented X3, CN II-XII intact - Detailed Neurological Exam: Coma Scale Eye Opening: Spontaneous Verbal Response: Oriented Motor Response: Obey commands Beck[place] Coma Scale Total: 15 - Routine Psychiatric Exam Present: normal affect Results - Labs CBC & Chem 7: 06/13/18 11:35 06/12/18 05:00 Laboratory Results - last 24 hr 06/12/18 06/12/18 06/12/18 12:10 16:44 21:40 CBC w Diff WBC RBC Hgb Hct MCV MCH MCHC RDW Plt Count MPV Neut % (Auto) Lymph % (Auto) [place] % (Auto) Eos % (Auto) Baso % (Auto) Neut # (Auto) Lymph # (Auto) [place] # (Auto) Eos # (Auto) Baso # (Auto) WBC Differential Differential Comment POC Glucose 305 H 522 H* 341 H 06/13/18 06/13/18 06/13/18 01:31 04:31 08:10 CBC w Diff WBC RBC Hgb Hct MCV MCH MCHC RDW Plt Count MPV Neut % (Auto) Lymph % (Auto) [place] % (Auto) Eos % (Auto) Baso % (Auto) Neut # (Auto) Lymph # (Auto) [place] # (Auto) Eos # (Auto) Baso # (Auto) WBC Differential Differential Comment POC Glucose 276 H 289 H 276 H 06/13/18 06/13/18 11:35 11:57 CBC w Diff Auto diff final WBC 15.7 H RBC 5.70 H Hgb 15.7 H Hct 44.9 MCV 78.8 L MCH 27.6 MCHC 35.1 RDW 12.6 Plt Count 127 L MPV 12.3 H Neut % (Auto) 79.9 H Lymph % (Auto) 9.7 [place] % (Auto) 8.1 H Eos % (Auto) 0.6 Baso % (Auto) 1.7 Neut # (Auto) 12.5 H Lymph # (Auto) 1.5 [place] # (Auto) 1.3 H Eos # (Auto) 0.1 Baso # (Auto) 0.3 H WBC Differential . Differential Comment . POC Glucose 317 H Microbiology 06/12/18 10:40 Blood - Peripheral Aerobic Blood Culture - Preliminary No growth in 1 day 06/12/18 10:40 Blood - Peripheral Anaerobic Blood Culture - Preliminary No growth in 1 day 06/11/18 06:42 Blood - Peripheral Aerobic Blood Culture - Preliminary No growth in 2 days 06/11/18 06:42 Blood - Peripheral Anaerobic Blood Culture - Preliminary No growth in 2 days Assessment and Plan - Plan Assessment and Plan - Assessment (1) Uncontrolled diabetes mellitus Code(s): E11.65 - Type 2 diabetes mellitus with hyperglycemia Status: Acute (2) Acute renal failure Code(s): N17.9 - Acute kidney failure, unspecified Status: Acute (3) Hypotension Code(s): I95.9 - Hypotension, unspecified Status: Acute (4) Hyponatremia Code(s): E87.1 - Hypo-osmolality and hyponatremia Status: Acute (5) Hypokalemia Code(s): E87.6 - Hypokalemia Status: Acute (6) Hypocalcemia Code(s): E83.51 - Hypocalcemia Status: Acute (7) Hypermagnesemia Code(s): E83.41 - Hypermagnesemia Status: Acute (8) Psychosis Code(s): F29 - Unspecified psychosis not due to a substance or known physiological condition Status: Acute (9) Substance abuse Code(s): F19.10 - Other psychoactive substance abuse, uncomplicated Status: Acute - Plan 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 -Josue act -Psychiatry input noted ok to transfer to psych unit. -CT of the brain was done which did not indicate any acute abnormality Possible pneumonia - WBC around 17K. - patient on Ceftriaxone 2g Qday and Levaquin 750mg Qday. - CBC in the AM. If improved, we can probably keep her on Levaquin only. Uncontrolled diabetes -Increased Levemir 25 units QHS and sliding scale insulin. Up-titrate as needed. May need pre-meal coverage. Electrolyte abnormalities with hyponatremia, hypokalemia, hypocalcemia, hypomagnesemia -Continue to monitor and replete as needed Acute kidney injury -Continue monitor renal function... better. -Avoid nephrotoxins DVT prevention -Subcutaneous Lovenox
[2018-06-13] MEDS: levoFLOXacin 750 MG Tablet PO SCH (12:13)
[2018-06-13 14:21] VITALS: RESP 16; O2SAT 98
[2018-06-13] MEDS ORDERED: Lisinopril 10 MG Tablet PO SCH (15:00)
[2018-06-13] MEDS ORDERED: Insulin Detemir Inj 1,000 UNIT/10 ML Vial SQ SCH (15:16)
[2018-06-13 15:25] LABS: Chloride 96 meq/L (98-107); Potassium 3.6 meq/L (3.5-5.1); Sodium 131 meq/L (136-145)
[2018-06-13 15:28] LABS: Calcium 8.2 mg/dL (8.5-10.1)
[2018-06-13 15:29] LABS: Albumin 2.8 g/dL (3.4-5.0); Anion Gap 16 meq/L (5-15); Blood Urea Nitrogen 11 mg/dL (7-18); Carbon Dioxide 19.5 meq/L (21.0-32.0); Glucose,Random 330 mg/dL (74-106)
[2018-06-13 15:32] LABS: Alanine Aminotransferase 32 U/L (10-53); Aspartate Aminotransferase 37 U/L (15-37); Glomerular Filtration Rate 65 mL/min (>89)
[2018-06-13 15:33] LABS: Total Protein 7.1 g/dL (6.4-8.2)
[2018-06-13 15:35] LABS: Alkaline Phosphatase 101 U/L (45-117)
[2018-06-13 18:03] VITALS: BP 116/68; PULSE 89; TEMP 98.7
--- NOTE | 2018-07-05 11:10 | MD ---
cc: Karlo Medrano MD DATE OF DISCHARGE: 06/13/2018 DISPOSITION: We will discharge the patient home. CONDITION AT THE TIME OF DISCHARGE: Satisfactory. ACTIVITY: As tolerated. DIET: Cardiac diet, ADA 1800-calorie diet. ALLERGIES: VANCOMYCIN. DISCHARGE MEDICATIONS: Include DuoNeb nebulization q.6 hours, gabapentin 600 mg p.o. t.i.d., NovoLog according to sliding scale and NovoLog 70/30 at 12 units subcutaneous daily, lisinopril 10 mg p.o. daily, lorazepam 1 mg p.o. at bedtime, potassium, nicotine patch as advised, quetiapine fumarate 25 mg twice a day, Restoril 15 mg p.o. daily p.r.n. insomnia. HOSPITAL COURSE: Patient was admitted for psychosis. Patient remained stable. The patient discharged in a satisfactory condition. The patient was advised to followup with PCP in 1 week and also psychiatry in 1 week. Please see the further details in the medical record. Karlo Medrano MD EA/vivek , 03:19 PM , 03:26 PM
== END 2018-06-13 20:00 ==
LOC: PHED 20:27 → PHEDA 23:05 → PHICU 06-11 00:36
PROVIDERS: ADMIT Family Medicine; ATTEND Family Medicine

== ENCOUNTER 2018-06-13 18:35 | Inpatient (IN) ==
[2018-06-13] MEDS ORDERED: Aluminum/Magnesium/Simethacone Susp 30 ML UDC PO PRN (23:26)
[2018-06-13] MEDS ORDERED: Acetaminophen 325 MG Tablet PO PRN (23:28)
[2018-06-14] MEDS ORDERED: Dextrose 50% in Water 50 ML Vial IV.PUSH PRN (08:28)
[2018-06-14 09:05] LABS: Calcium 8.6 mg/dL (8.5-10.1); Carbon Dioxide 20.6 meq/L (21.0-32.0); Potassium 3.7 meq/L (3.5-5.1)
[2018-06-14 09:08] LABS: Chol/HDL Ratio 5.09 Ratio; HDL Cholesterol 25.7 mg/dL (40.0-60.0)
[2018-06-14] MEDS: Insulin NovoLOG Aspart Correctional Sugar Inj SQ SCH ×4 (09:50→22:00)
[2018-06-14] MEDS ORDERED: Insulin NovoLOG Aspart Correctional Sugar Inj SQ SCH (12:00)
[2018-06-14] MEDS: Lisinopril 10 MG Tablet PO SCH (12:18)
[2018-06-14] MEDS: Senna/Docusate Sodium 8.6/50 MG Tablet PO SCH (12:18)
[2018-06-14] MEDS: hydroCHLOROthiazide 25 MG Tablet PO SCH (12:18)
[2018-06-14] MEDS: Gabapentin 300 MG Capsule PO SCH ×2 (12:19→18:09)
[2018-06-14] MEDS: Enoxaparin Inj 30 MG/0.3 ML Syringe SQ SCH (12:19)
[2018-06-14 15:53] LABS: Hemoglobin A1c 18.4 % (4.3-6.0)
--- NOTE | 2018-06-14 16:41 | P.HPPSY ---
Provisional Diagnosis Admission Date: June 13, 2018 21:48 [place] I.: Unspecified psychosis, r/o substance induced psychotic disorder, cocaine use disorder Competence Certification of Person's Competence To Provide Express and Informed Consent I have personally examined Lucita Rinaldi, a person being served at [facility] on, June 14, 2018 1639. Express and informed consent means consent voluntarily given in writing, by a competent person, after sufficient explanation and disclosure of the subject matter involved to enable the person to make a knowing and willful decision without any element of force, fraud, deceit, duress, or other form of constraint or coercion. This person is 18 years of age or older, is not now known to be incompetent to consent to treatment with a guardian advocate, and does not have a health care surrogate or proxy currently making medical treatment decisions. I have found this person to be one of the following: [xxx] Competent to provide express and informed consent, as defined above, for voluntary admission to this facility and is competent to provide express and informed consent for treatment. He/she has the consistent capacity to make well reasoned, willful, and knowing decisions concerning his or her medical or mental health treatment. The person fully and consistently understands the purpose of the admission for examination/placement and is fully capable of personally exercising all rights assured [place] [] Incompetent to provide express and informed consent to voluntary admission, and this is incompetent to provide express and informed consent to treatment. The person must be transferred to involuntary status and a petition for a guardian advocate filed with the Circuit Court. [] Refusing to provide express and informed consent to voluntary admission but is competent to provide express and informed consent for treatment. The person must be discharged or transferred to involuntary status. Form shall be completed within 24 hours of a person's arrival at the receiving facility and filed in the clinical record of each person: 1. Admitted on a voluntary basis 2. Permitted to provide express and informed consent to his/her own treatment 3. Allowed to transfer from involuntary to voluntary status 4. Prior to permitting a person to consent to his or her own treatment after having been previously found incompetent to consent to treatment. History of Present Illness Capacity: Has capacity History of Present Illness: Patient is a 47-year-old -English woman, , domiciled with , unemployed, with no formal past psychiatric history, no previous psychiatric diagnoses, no previous psychiatric admissions, no previous suicide attempts or self-injurious behavior, with substance abuse history significant for IV heroin use, cocaine use, marijuana use, with a past medical history significant for diabetes, endocarditis was recently admitted to the medical floor for diabetic ketoacidosis which during admission patient was noted to endorse paranoid ideations, delusions of bugs in her skin along with endorsing suicide ideation in the context of recent relapse into cocaine use which patient once medically clear was subsequently transferred to the inpatient psychiatry unit for further evaluation and management. Patient was found lying hospital bed noted B, cooperative. She mentions that she recently relapsed to cocaine use had been using for the past month usually once per week and interested in engaging in rehabilitation program again. She mentions she was recently also diagnosed with diabetes due to recent medical admission and states wanting to take care of her health and not resume any drug use. Patient mentions that she was on methadone prior to her medical admission but has not received it since and plans on remaining abstinent from any substance use. Patient reports not recalling having endorsed any paranoid delusions any suicide ideation nor any thoughts of having bugs crawling in her skin. She denies feeling depressed, denies any anxiety, denies any perceptional disturbances or delusions at this time. Patient reports having been sleeping well prior to her admission with no change in appetite energy or concentration, denying any manic or other psychotic symptoms at this time. Patient states having visited by her noted that he was upset due to having and brought herself on which her level on the unit states that her were aware of this policy on the unit. Family psychiatric history: Denies Past psychiatric history: Denies any previous psychiatric diagnoses, denies any prior psychiatric admissions, suicide attempts or self-injurious behavior. He denies any history of abuse. Substance use history: History of IV heroin use, in remission, reports previously on methadone which he last took 6-7 days ago and connected to [facility] clinic. Patient reports recent relapse into cocaine use as stated above. Patient reports weekly marijuana use. Patient denies use of any other drugs. Past medical history: DM, endocarditis Allergies: NKDA Social history: Born and raised in [place], domiciled with , no children, unemployed, highest education is high school. - Inpatient Certification I certify that the inpatient services were ordered in accordance with Medicare regulations governing the order. This includes certification that hospital inpatient services are reasonable and necessary and in the case of services not specified as inpatient-only under 42 CFR 419.22(n), that they are appropriately provided as inpatient services in accordance to with the 2-midnight benchmark under 43 CFR 412.3(e) I certify that inpatient psychiatric hospital services are medically necessary. Evaluation and treatment and/or diagnostic testing are expected to improve the patient's condition. The patient needs on a daily basis, active treatment furnished directly by or requiring the supervision of inpatient psychiatric facility personnel. Estimated Total Length of Stay (Days): 4 Plans for Post Hospital Care: Not yet determined Review of Systems All other systems reviewed negative except as stated in HPI PMFSH - History History Provided By: Patient, Medical Record - Medical History Medical History: Medical History (Last Reviewed 06/13/18 @ 08:18 by Paul Dumas) Anxiety Drug abuse, IV Heart valve problem Hypertension Scabies - Surgical History Surgical History: Surgical History (Last Reviewed 06/13/18 @ 08:18 by Paul Dumas) Hx of knee surgery - Tobacco History Second Hand Smoke Exposure: Yes Tobacco Use In Past 30 Days: Yes Smoking Status: Current every day smoker Tobacco Type: Cigarettes - Alcohol History How Often Do You Have a Drink Containing Alcohol: Monthly or less - Substance Use History Substance History: Active Abuse, Past History - Substance Use Type Crack/Cocaine Status: Active Frequency: Once per week Reason for Use: Feels Good Comment: Patient stated that she uses about $30 worth of cocaine once per week for the last 2 months. Patient stated that she does not have an exact reason for doing the cocaine, other than she has the money for it. Alcohol Comment: Patient stated that she has a past history of alcohol use. Patient stated that she stopped drinking alcohol approximately 6 years ago. Marijuana Comment: Patient stated that she has a past history of marijuana use. Patient stated that she stopped using marijuana a few years ago. Quality Measures - Psychiatric History Psychological trauma history: denies Violence risk to others in the last 6 months: low Violence risk to self in the last 6 months: denies at this time but had endorsed prior to this admission - Substance Abuse History Drug or alcohol use in the past 12 months: see HPI - Patient Strengths Patient's strengths (minimum of 2): verbal and communicative Medications and Allergies Active Medications: Active Medications Acetaminophen (Tylenol) 650 mg PO Q4H PRN PRN Reason: PAIN 1-5 OR TEMP > 101 Last Admin: 06/14/18 01:12 Dose: 650 mg Al Hydrox/Mg Hydrox/Simethicone (Mag-Al Plus Susp Liq) 30 ml PO Q6H PRN PRN Reason: DYSPEPSIA Al Hydroxide/Mg Hydroxide (Milk Of Magnesia Liq) 30 ml PO Q24H PRN PRN Reason: CONSTIPATION Clonidine HCl (Catapres) 0.2 mg PO TID [facility] Last Admin: 06/14/18 12:19 Dose: 0.2 mg Dextrose (D50w Vial) 50 ml IV.PUSH UNSCH PRN PRN Reason: PER HYPOGLYCEMIA PROTOCOL Diphenhydramine HCl (Benadryl) 50 mg PO HS PRN PRN Reason: INSOMNIA Diphenhydramine HCl (Benadryl Inj) 50 mg IM HS PRN PRN Reason: INSOMNIA Enoxaparin Sodium (Lovenox Inj) 30 mg SQ Q24H [facility] Last Admin: 06/14/18 12:19 Dose: 30 mg Gabapentin (Neurontin) 600 mg PO TID [facility] Last Admin: 06/14/18 12:19 Dose: 600 mg Glucagon (Glucagon Inj) 1 mg OTHER PRN PRN PRN Reason: for Hypoglycemia Protocol Hydrochlorothiazide (Hydrodiuril) 12.5 mg PO DAILY [facility] Last Admin: 06/14/18 12:18 Dose: 12.5 mg Hydroxyzine HCl (Atarax) 50 mg PO Q6H PRN PRN Reason: ANXIETY Insulin Aspart (Novolog Insulin Correctional Sugar Inj) 0 unit SQ ACHS AND 3AM [facility]; Protocol Last Admin: 06/14/18 12:19 Dose: 5 unit Insulin Detemir (Levemir Inj) 25 unit SQ [facility] Lisinopril (Prinivil) 10 mg PO DAILY [facility] Last Admin: 06/14/18 12:18 Dose: 10 mg Miscellaneous (Pill Splitter) 1 each OTHER UNSCH [facility] Miscellaneous Information (Mis Nursing Information) 0 each OTHER [facility] Nicotine (Habitrol 21 Mg Patch.24 Hr) 1 patch T-DERMAL DAILY [facility] Last Admin: 06/14/18 09:50 Dose: 1 patch Quetiapine Fumarate (Seroquel) 25 mg PO BID [facility] Senna/Docusate Sodium (Eri-Colace) 1 tab PO DAILY [facility] Last Admin: 06/14/18 12:18 Dose: Not Given Allergies Allergy/AdvReac Type Severity Reaction Status Date / Time vancomycin Allergy Severe Anaphylaxis Verified 06/10/18 20:34 *MDRO Multi-Drug Resistant AdvReac Unknown Rash Uncoded 05/30/18 20:09 Organism Home Medications Medication Instructions Recorded Confirmed Type clonidine HCl 0.2 mg PO TID 05/30/18 06/11/18 History gabapentin 600 mg PO TID 05/30/18 06/11/18 History lisinopril-hydrochlorothiazide 1 tab PO DAILY 05/30/18 06/11/18 History methadone 5 mg PO EVERY OTHER DAY 05/30/18 05/30/18 History Results - Labs CBC & Chem 7: 06/14/18 08:31 Labs: Laboratory Results - last 24 hr 06/14/18 08:31 Sodium 132 L Potassium 3.7 Chloride 94 L Carbon Dioxide 20.6 L Anion Gap 17 H BUN 10 Creatinine 1.11 H Estimated GFR 64 L Random Glucose 316 H Calcium 8.6 Triglycerides 189 H Cholesterol 131 LDL Cholesterol, Calc 68 HDL Cholesterol 25.7 L Cholesterol/HDL Ratio 5.09 Exam Vital signs: Vital Signs 06/13/18 23:16 06/14/18 06:00 06/14/18 12:15 Temperature 98 F 98.0 F Pulse Rate 117 H 93 H Respiratory Rate 18 15 Blood Pressure 123/79 137/80 156/89 H Pulse Oximetry 98 96 Intake & Output 06/13/18 06/14/18 06/14/18 18:59 06:59 18:59 Intake Total 600 / 600 Balance 600 / 600 Weight 116.1 kg Intake: Oral 600 / 600 Other: Date of Last Bowel Movement 06/13/18 Narrative: Not noted to be in acute distress, no gross motor abnormalities, no signs of tremor or EPS, no psychomotor agitation or retardation - Constitutional no acute distress, cooperative Mental Status Examination Appearance: Appropriate Consciousness: Alert Orientation: Person, Place, Date/Time Motor Activity: Other (not formally tested) Speech: Unremarkable Language: Adequate Fund of Knowledge: Inadequate Attention and Concentration: Adequate Memory: Impaired (surrounding events of her medical admission) Mood: Appropriate Affect: Appropriate Thought Process & Associations: Intact, Goal directed, Linear Thought Content: Appropriate Hallucination Type: None Delusion Type: None Suicidal Ideation: No Suicidal Plan: No Suicidal Intention: No Homicidal Ideation: No Homicidal Plan: No Homicidal Intention: No Insight: Fair Judgment: Impulsive Assessment and Plan - Assessment (1) Unspecified psychosis Code(s): F29 - Unspecified psychosis not due to a substance or known physiological condition Status: Acute - Plan Plan: Estimated LOS: [] days Patient is a 47 y/o woman with no past psychiatric history, who carries a diagnosis of polysubstance use disorder, who was recently admitted for diabetic ketoacidosis, and had endorsed paranoia, bizarre delusions and suicidal ideations who at this time reports not recalling endorsing these symptoms and does not report them now. Patient will be maintained for further observation and will defer from staring antipsychotic medications at this time as recent psychotic symptoms may stem from substance induced psychosis but will require further observation to rule out primary psychotic disorder. Patient will be admitted under voluntary status and has capacity to consent for treatment. Monitor mood and behavior. Discharge planning in progress. Justification for Continued Inpatient Stay: At risk of further decompensation a lower level care.
[2018-06-14] MEDS ORDERED: Insulin Detemir Inj 1,000 UNIT/10 ML Vial SQ SCH (21:00)
[2018-06-14] MEDS ORDERED: QUEtiapine 25 MG Tablet PO SCH (21:00)
--- NOTE | 2018-06-14 22:18 | MB ---
cc: Karlo Medrano MD DATE: 06/14/2018 REASON FOR CONSULTATION: Medical management. HISTORY OF PRESENT ILLNESS: This is a 47-year-old female with past medical and surgical history significant for diabetes mellitus, anxiety, heart valve problem, history of scabies, history of IV drug abuse, hypertension, history of knee surgery in the past. She is a smoker, drinks alcohol, and abuse drugs. She was admitted at [facility] in the ICU with a diagnosis of DKA, cocaine intoxication, altered mental status. She was seen by critical care doctor over there and I was seeing the patient at [facility]. They transferred the care to [place] and eventually the patient needed to be transferred to the psych unit and patient was Josue Acted. Patient had generalized weakness and malaise at the time of admission when she was admitted at [facility]. She was dropping everything out of her hands, unsteady gait. The patient was taking blood pressure medicine and also recent diagnosis of scabies. The patient was medically stable and was transferred to the psych unit. Patient denies any complaint at the time of examination. Other than that, nothing significant. PAST MEDICAL AND SURGICAL HISTORY: As dictated above. SOCIAL HISTORY: As dictated above. ALLERGIES: VANCOMYCIN. MEDICATIONS: Include: 1. Tylenol 650 q. 6 hours p.r.n. pain. 2. DuoNeb nebulization q. 2 hours p.r.n. cough, shortness of breath, wheezing. 3. Hydroxyzine 25 mg q. 8 hours p.r.n. itching. 4. Humulin Regular according to sliding scale. 5. Ativan 1 mg IV push p.r.n. anxiety. 6. Metoclopramide 5 mg IV push every 6 hours p.r.n. nausea, vomiting. 7. Temazepam 50 mg p.o. at bedtime p.r.n. insomnia. 8. Lisinopril/hydrochlorothiazide 10/12.5 mg p.o. daily. 9. Methadone 5 mg every other day. 10. Gabapentin 600 mg 3 times a day. 11. Clonidine 0.2 mg 3 times a day. REVIEW OF SYSTEMS: All review of systems are negative at the time of examination. PHYSICAL EXAMINATION: GENERAL: This is a 47-year-old female sitting on the bed, not in acute distress. VITAL SIGNS: Include temperature 98.0, heart rate 93, respirations 15, blood pressure 137/80, O2 saturation 99% on room air. HEENT: Normocephalic, atraumatic. EOMI. PERRL. Oral mucosa moist. NECK: Supple. No visible thyromegaly or neck masses. Trachea central. CARDIOVASCULAR: Regular rate and rhythm. RESPIRATORY: Clear to auscultation bilaterally. ABDOMEN: Soft, nontender. Bowel sounds present. EXTREMITIES: No cyanosis, no clubbing. Full range of motion of all extremities. NEUROLOGIC: Awake, alert and oriented x4. No focal deficit. SKIN: Warm and dry. PSYCHIATRIC: The patient is cooperative. LABORATORY DATA: Include a sodium 132, potassium 3.7, normal; chloride 94, low. Sodium is also low at 132. Anion gap 17, high; blood glucose was high at 302. Hemoglobin 18.4. Triglycerides 189, high; HDL 25.7, low; LDL 68. ASSESSMENT AND PLAN: 1. This is a 47-year-old female diagnosed with unspecified psychosis. Psychiatry is managing. 2. Diabetes mellitus. Check blood sugars start home medicine. 3. History of anxiety. Continue medication. 4. History of intravenous drug abuse. Patient advised to quit. 5. History of smoking. The patient advised to quit. 6. History of alcohol intake. The patient advised to quit. 7. Deep venous thrombosis prophylaxis. The patient walking. 8. Gastrointestinal prophylaxis. The patient eating. We will give Protonix 40 mg p.o. daily. 9. Deep venous thrombosis prophylaxis: Lovenox 30 mg subcutaneous daily. 10. We are going to manage the patient on a daily basis and make recommendations on a daily basis. Karlo Medrano MD EA/shorty/ , 09:09 PM , 09:22 PM MTDD
[2018-06-15] MEDS: Insulin NovoLOG Aspart Correctional Sugar Inj SQ SCH (05:14)
[2018-06-15 06:34] VITALS: BP 109/62; PULSE 80; RESP 18; TEMP 98.9; O2SAT 95
--- NOTE | 2018-06-15 07:49 | P.PN ---
Subjective Interval history: Patient feel better no acute issue discussed with RN. Physical Exam Vital signs: Vital Signs 06/14/18 12:15 06/14/18 20:00 06/15/18 06:00 Temperature 98.9 F Pulse Rate 80 Respiratory Rate 15 18 Blood Pressure 156/89 H 109/62 Pulse Oximetry 95 Intake & Output 06/14/18 06/15/18 06/15/18 18:59 06:59 18:59 Intake Total 1080 / 1080 Balance 1080 / 1080 Intake: Oral 1080 / 1080 Other: Date of Last Bowel Movement 06/13/18 06/13/18 - Constitutional no acute distress - Routine HEENT Exam Head: Present: normocephalic, atraumatic Eye: Present: EOMI, PERRL ENT: Present: mucous membranes moist - Routine Neck Exam Present: supple, full ROM - Routine Respiratory Exam Present: CTA bilaterally - Routine Cardiovascular Exam Present: RRR, S1, S2 - Routine Abdominal Exam Present: soft, normoactive bowel sounds - Routine Skin Exam Present: intact, dry, warm - Routine Neurological Exam Present: alert, oriented X3, CN II-XII intact, normal speech - Detailed Neurological Exam: Coma Scale Eye Opening: Spontaneous Verbal Response: Oriented Motor Response: Obey commands [place] Coma Scale Total: 15 - Routine Psychiatric Exam Present: normal affect Results - Labs CBC & Chem 7: 06/15/18 09:57 06/15/18 09:57 Laboratory Results - last 24 hr 06/14/18 06/14/18 06/14/18 08:31 08:31 16:39 Sodium 132 L Potassium 3.7 Chloride 94 L Carbon Dioxide 20.6 L Anion Gap 17 H BUN 10 Creatinine 1.11 H Estimated GFR 64 L POC Glucose 301 H Random Glucose 316 H Hemoglobin A1c 18.4 H Calcium 8.6 Triglycerides 189 H Cholesterol 131 LDL Cholesterol, Calc 68 HDL Cholesterol 25.7 L Cholesterol/HDL Ratio 5.09 06/14/18 06/15/18 20:23 04:43 Sodium Potassium Chloride Carbon Dioxide Anion Gap BUN Creatinine Estimated GFR POC Glucose 302 H 328 H Random Glucose Hemoglobin A1c Calcium Triglycerides Cholesterol LDL Cholesterol, Calc HDL Cholesterol Cholesterol/HDL Ratio Assessment and Plan - Plan ASSESSMENT AND PLAN: 1. This is a 47-year-old female diagnosed with unspecified psychosis. Psychiatry is managing. 2. Diabetes mellitus. Check blood sugars start home medicine. 3. History of anxiety. Continue medication. 4. History of intravenous drug abuse. Patient advised to quit. 5. History of smoking. The patient advised to quit. 6. History of alcohol intake. The patient advised to quit. 7. Deep venous thrombosis prophylaxis. The patient walking. 8. Gastrointestinal prophylaxis. The patient eating. We will give Protonix 40 mg p.o. daily. 9. Deep venous thrombosis prophylaxis: Lovenox 30 mg subcutaneous daily. 10. We are going to manage the patient on a daily basis and make recommendations on a daily basis.
[2018-06-15 10:24] LABS: Baso % (Auto) 0.3 % (0.0-2.0); Eos # (Auto) 0.2 th/mm3 (0.0-0.4); Eos % (Auto) 1.9 % (0.0-4.0); Hematocrit 41.3 % (35.0-46.0); Hemoglobin 13.8 gm/dL (11.6-15.3); Lymph # (Auto) 1.5 th/mm3 (1.0-4.8); Lymph % (Auto) 13.6 % (9.0-44.0); Mean Corpuscular HGB Conc 33.5 % (32.0-36.0); Mean Corpuscular Hemoglobin 26.7 pg (27.0-34.0); Mean Corpuscular Volume 79.8 fL (80.0-100.0); Mean Platelet Volume 10.8 fL (7.0-11.0); Mono # (Auto) 1.2 th/mm3 (0.0-0.9); Mono % (Auto) 11.2 % (0.0-8.0); Platelet Count 131 th/mm3 (150-450); Red Blood Count 5.18 mil/mm3 (4.00-5.30); Red Cell Distribution Width 13.1 % (11.6-17.2)
[2018-06-15 10:49] LABS: Albumin 2.6 g/dL (3.4-5.0); Anion Gap 11 meq/L (5-15); Aspartate Aminotransferase 32 U/L (15-37); Blood Urea Nitrogen 15 mg/dL (7-18); Carbon Dioxide 26.5 meq/L (21.0-32.0); Chloride 95 meq/L (98-107); Glomerular Filtration Rate 55 mL/min (>89); Glucose,Random 353 mg/dL (74-106); Potassium 3.2 meq/L (3.5-5.1); Sodium 132 meq/L (136-145)
[2018-06-15 10:53] LABS: Alanine Aminotransferase 26 U/L (10-53); Alkaline Phosphatase 91 U/L (45-117); Total Protein 6.5 g/dL (6.4-8.2)
[2018-06-15] MEDS: Senna/Docusate Sodium 8.6/50 MG Tablet PO SCH (11:06)
[2018-06-15] MEDS: hydroCHLOROthiazide 25 MG Tablet PO SCH (11:06)
[2018-06-15] MEDS: Gabapentin 300 MG Capsule PO SCH (11:07)
[2018-06-15] MEDS: Lisinopril 10 MG Tablet PO SCH (11:07)
[2018-06-15] MEDS: Enoxaparin Inj 30 MG/0.3 ML Syringe SQ SCH (11:07)
--- NOTE | 2018-06-15 11:41 | P.DSPSY ---
Psychiatry Discharge Summary Inpatient Psychiatric care?: Yes Advance Directives: No Mental Health Advance Directive: No Health Care Proxy: No - Admission Admission Date: June 13, 2018 21:48 - Admission Diagnosis (1) Substance-induced psychotic disorder Code(s): F19.959 - Other psychoactive substance use, unspecified with psychoactive substance-induced psychotic disorder, unspecified (2) Substance abuse Code(s): F19.10 - Other psychoactive substance abuse, uncomplicated Brief History: Patient is a 47-year-old -[place] woman, , domiciled with , unemployed, with no formal past psychiatric history, no previous psychiatric diagnoses, no previous psychiatric admissions, no previous suicide attempts or self-injurious behavior, with substance abuse history significant for IV heroin use, cocaine use, marijuana use, with a past medical history significant for diabetes, endocarditis was recently admitted to the medical floor for diabetic ketoacidosis which during admission patient was noted to endorse paranoid ideations, delusions of bugs in her skin along with endorsing suicide ideation in the context of recent relapse into cocaine use which patient once medically clear was subsequently transferred to the inpatient psychiatry unit for further evaluation and management. Patient was found lying hospital bed noted B, cooperative. She mentions that she recently relapsed to cocaine use had been using for the past month usually once per week and interested in engaging in rehabilitation program again. She mentions she was recently also diagnosed with diabetes due to recent medical admission and states wanting to take care of her health and not resume any drug use. Patient mentions that she was on methadone prior to her medical admission but has not received it since and plans on remaining abstinent from any substance use. Patient reports not recalling having endorsed any paranoid delusions any suicide ideation nor any thoughts of having bugs crawling in her skin. She denies feeling depressed, denies any anxiety, denies any perceptional disturbances or delusions at this time. Patient reports having been sleeping well prior to her admission with no change in appetite energy or concentration, denying any manic or other psychotic symptoms at this time. Patient states having visited by her noted that he was upset due to having and brought herself on which her level on the unit states that her were aware of this policy on the unit. Family psychiatric history: Denies Past psychiatric history: Denies any previous psychiatric diagnoses, denies any prior psychiatric admissions, suicide attempts or self-injurious behavior. He denies any history of abuse. Substance use history: History of IV heroin use, in remission, reports previously on methadone which he last took 6-7 days ago and connected to [facility]. Patient reports recent relapse into cocaine use as stated above. Patient reports weekly marijuana use. Patient denies use of any other drugs. Past medical history: DM, endocarditis Allergies: NKDA Social history: Born and raised in [facility], domiciled with , no children, unemployed, highest education is high school. Tobacco Use In Past 30 Days: Yes How Often Do You Have a Drink Containing Alcohol: Monthly or less Hospital Course: Patient is a 47-year-old -[place] woman, , domiciled with , unemployed, with no formal past psychiatric history, no previous psychiatric diagnoses, no previous psychiatric admissions, no previous suicide attempts or self-injurious behavior, with substance abuse history significant for IV heroin use, cocaine use, marijuana use, with a past medical history significant for diabetes, endocarditis was recently admitted to the medical floor for diabetic ketoacidosis which during admission patient was noted to endorse paranoid ideations, delusions of bugs in her skin along with endorsing suicide ideation in the context of recent relapse into cocaine use which patient once medically clear was subsequently transferred to the inpatient psychiatry unit for further evaluation and management. Patient was evaluated after transfer and discharge from medical floor and upon evaluation no longer endorse initial symptomatology ; denied any delusions, paranoia or suicidal ideation. Patient was not continued on quetiapine and kept for further observation. She was noted to have appropriate behavior and interactions with staff and was not noted to be internally preoccupied, responding to internal stimuli nor endorsing bizarre or paranoid delusions. Patient continued to deny any suicidal or homicidal ideation nor any perceptual disturbances. She was noted to be cooperative with staff, had good behavioral control with no evidence of any verbal or physical aggressive behavior toward others and was noted to have stable mood with treatment. Upon discharge patient reported feeling fine denied any perceptual disturbances nor suicidal ideations or homicidal ideations. Patient agreed to continue treatment and follow up appointments for continuity of care. Patient will be discharged to her as arranged by counselor with plan to continue recommendations on an outpatient setting. Supportive psychotherapy provided. Patient was counseled on importance of compliance with treatment and importance of abstinence from substance use which she agreed to engage in rehab. Suicide and violence risk assessment on day of discharge both suggest lower imminent risk, and the patient's level of function is adequate for planned level of outpatient care. Patient has maximized benefit from this inpatient psychiatric hospital stay and to return to psychiatric emergency room for any concerning psychiatric symptoms. Patient agrees with plan. - Discharge Discharge Date: 06/15/18 - Discharge Diagnosis (1) Substance abuse Code(s): F19.10 - Other psychoactive substance abuse, uncomplicated Status: Acute (2) Substance-induced psychotic disorder Code(s): F19.959 - Other psychoactive substance use, unspecified with psychoactive substance-induced psychotic disorder, unspecified Status: Acute Discharge Disposition: Home - Discharge Instructions Discharge Diet: Heart Healthy Diet, Diabetic Diet Activities You Can Perform: Weight Bearing As Tolerat - Discharge Time > 30 minutes Mental Status Examination Appearance: Appropriate Consciousness: Alert Orientation: Person, Place, Date/Time Motor Activity: Other (not formally tested) Speech: Unremarkable Language: Adequate Fund of Knowledge: Inadequate Attention and Concentration: Adequate Memory: Impaired (surrounding events of her medical admission) Mood: Appropriate Affect: Appropriate Thought Process & Associations: Intact, Goal directed, Linear Thought Content: Appropriate Hallucination Type: None Delusion Type: None Suicidal Ideation: No Suicidal Plan: No Suicidal Intention: No Homicidal Ideation: No Homicidal Plan: No Homicidal Intention: No Insight: Fair Judgment: Impulsive Discharge/Advance Care Plan - Results Vital Signs: Last Vital Signs Temp 98.9 F 06/15/18 06:00 Pulse 80 06/15/18 06:00 Resp 18 06/15/18 06:00 BP 109/62 06/15/18 06:00 Pulse Ox 95 06/15/18 06:00 Lab Results: Abnormal Lab Results 06/14/18 06/14/18 06/14/18 08:31 16:39 20:23 WBC RBC Hgb Hct MCV MCH MCHC RDW Plt Count MPV Neut % (Auto) Lymph % (Auto) Lawrence % (Auto) Eos % (Auto) Baso % (Auto) Neut # (Auto) Lymph # (Auto) Lawrence # (Auto) Eos # (Auto) Baso # (Auto) WBC Differential Differential Comment Sodium Potassium Chloride Carbon Dioxide Anion Gap BUN Creatinine Estimated GFR POC Glucose 301 H 302 H Random Glucose Hemoglobin A1c 18.4 H Calcium Total Bilirubin AST ALT Alkaline Phosphatase Total Protein Albumin 06/15/18 06/15/18 06/15/18 04:43 08:22 09:57 WBC 11.0 RBC 5.18 Hgb 13.8 Hct 41.3 MCV 79.8 L MCH 26.7 L MCHC 33.5 RDW 13.1 Plt Count 131 L MPV 10.8 Neut % (Auto) 73.0 H Lymph % (Auto) 13.6 Lawrence % (Auto) 11.2 H Eos % (Auto) 1.9 Baso % (Auto) 0.3 Neut # (Auto) 8.0 H Lymph # (Auto) 1.5 Lawrence # (Auto) 1.2 H Eos # (Auto) 0.2 Baso # (Auto) 0.0 WBC Differential . Differential Comment Auto diff final Sodium Potassium Chloride Carbon Dioxide Anion Gap BUN Creatinine Estimated GFR POC Glucose 328 H 303 H Random Glucose Hemoglobin A1c Calcium Total Bilirubin AST ALT Alkaline Phosphatase Total Protein Albumin 06/15/18 06/15/18 09:57 11:22 WBC RBC Hgb Hct MCV MCH MCHC RDW Plt Count MPV Neut % (Auto) Lymph % (Auto) Lawrence % (Auto) Eos % (Auto) Baso % (Auto) Neut # (Auto) Lymph # (Auto) Lawrence # (Auto) Eos # (Auto) Baso # (Auto) WBC Differential Differential Comment Sodium 132 L Potassium 3.2 L Chloride 95 L Carbon Dioxide 26.5 Anion Gap 11 BUN 15 Creatinine 1.27 H Estimated GFR 55 L POC Glucose 315 H Random Glucose 353 H Hemoglobin A1c Calcium 8.0 L Total Bilirubin 0.6 AST 32 ALT 26 Alkaline Phosphatase 91 Total Protein 6.5 D Albumin 2.6 L Laboratory Results Hemoglobin A1c 18.4 % (4.3-6.0) H 06/14/18 08:31 Triglycerides 189 mg/dL (42-150) H 06/14/18 08:31 Cholesterol 131 mg/dL (120-200) 06/14/18 08:31 LDL Cholesterol, Calc 68 mg/dL (0-99) 06/14/18 08:31 HDL Cholesterol 25.7 mg/dL (40.0-60.0) L 06/14/18 08:31 Summary of Procedures: none Pending Results: None - Medications Number of antipsychotic medications at discharge: 0 - Discharge Care Plan Goals to Promote Your Health: * To prevent worsening of your condition and complications * To maintain your health at the optimal level Directions to Meet Your Goals: Take your medications as prescribed Follow your dietary instruction Follow activity as directed Keep your appointments as scheduled Take your immunizations and boosters as scheduled If your symptoms worsen call your PCP, if no PCP go to Urgent Care Center or Emergency Room For 01/05 questions related to your inpatient stay or results of tests pending at discharge, please contact Dr. Tim Costello MD at Smoking is Dangerous to Your Health. Avoid second hand smoking
== END 2018-06-15 12:48 | disposition home or self-care (01) ==
LOC: H4EA 21:48
PROVIDERS: ADMIT Student in an Organized Health Care Education/Training Program; ATTEND Student in an Organized Health Care Education/Training Program
CPT/HCPCS: 80048; 80053; 80061; 82948; 82962; 83036; 85025; J1650; J1815; Q0163